=== PATIENT | male | born 1955 | race American Indian/Alaskan Native ===

== ENCOUNTER 2020-11-25 22:58 | Inpatient (IN) | payer MEDICARE ==
[2020-11-25] MEDS ORDERED: SODIUM CHLORIDE 0.9% 1000 ML 1,000 ML IV ONE (23:04)
[2020-11-25] MEDS ORDERED: CEFEPIME/NS 2 GM/100 ML 2 GM/100 ML BAG IV ONE ×2 (23:05→23:54)
[2020-11-25] MEDS ORDERED: SODIUM CHLORIDE 0.9% 1000 ML IV SOLN IV ONE (23:08)
--- NOTE | 2020-11-25 23:10 | Emergency Department Report ---
ED General Adult HPI - General Chief complaint: Fever Stated complaint: FEVER PUI?: Yes Time Seen by Provider: 11/25/20 23:03 Source: patient, EMS Mode of arrival: Stretcher Limitations: No Limitations - History of Present Illness Initial comments: Patient is a 65-year-old male who presents emergency room with complaints of fever, chills, diarrhea. Patient brought in by EMS. EMS states that the patient was found to be hypoxic 92% on room air placed on 3 L is 97% on 3 L. Patient found to have a heart rate of 140 and hypotension. Patient states his fever started yesterday. Patient states he has had diarrhea for a few days. Patient recently diagnosed with C. difficile and has not been given any treatment for it. Patient was diagnosed by his home health nurse.. Patient states he had his COVID-19 vaccine 4 weeks ago. Patient states he had both doses. Patient denies cough. Patient is currently on TPN secondary to stomach cancer. Patient denies recent travel. Patient denies recent international travel. Mary ent denies exposure to the novel coronavirus. Patient denies sick contacts. Patient denies loss of smell. Patient denies cough. Patient denies runny nose. Patient denies coming in contact with anybody with symptoms of the novel coronavirus. -: Sudden - Related Data Allergies Allergy/AdvReac Type Severity Reaction Status Date / Time aspirin AdvReac Nausea Verified 11/26/20 04:34 povidone-iodine AdvReac Nausea Verified 11/26/20 04:36 [From Betadine] soap [From Betadine] AdvReac Nausea Verified 11/26/20 04:36 ED Review of Systems ROS: Stated complaint: FEVER Other details as noted in HPI Constitutional: chills, fever Eyes: denies: eye pain, eye discharge, vision change ENT: denies: ear pain, throat pain Respiratory: denies: cough, shortness of breath, wheezing Cardiovascular: denies: chest pain, palpitations Endocrine: no symptoms reported Gastrointestinal: diarrhea. denies: abdominal pain, nausea Genitourinary: denies: urgency, dysuria Musculoskeletal: denies: back pain, joint swelling, arthralgia Skin: denies: rash, lesions Neurological: denies: headache, weakness, paresthesias Psychiatric: denies: anxiety, depression Hematological/Lymphatic: denies: easy bleeding, easy bruising ED Past Medical Hx - Past Medical History Previous Medical History?: Yes Additional medical history: History of C. difficile, stomach cancer - Surgical History Past Surgical History?: No - Family History Family history: no significant - Social History Smoking Status: Never Smoker Substance Use Type: None ED Physical Exam - General General appearance: alert, in no apparent distress - Head Head exam: Present: atraumatic, normocephalic - Eye Eye exam: Present: normal appearance - ENT ENT exam: Present: mucous membranes moist - Neck Neck exam: Present: normal inspection - Respiratory Respiratory exam: Present: normal lung sounds bilaterally. Absent: respiratory distress - Cardiovascular Cardiovascular Exam: Present: regular rate, normal rhythm. Absent: systolic murmur, diastolic murmur, rubs, gallop - GI/Abdominal GI/Abdominal exam: Present: soft, normal bowel sounds - Rectal Rectal exam: Present: deferred - Extremities Exam Extremities exam: Present: normal inspection - Back Exam Back exam: Present: normal inspection - Neurological Exam Neurological exam: Present: alert, oriented X3 - Psychiatric Psychiatric exam: Present: normal affect, normal mood - Skin Skin exam: Present: warm, dry, intact, normal color. Absent: rash ED Course Vital Signs 11/25/20 11/25/20 11/25/20 23:38 23:39 23:46 Temperature 101 F H Pulse Rate 136 H 136 H 136 H Respiratory 16 19 Rate Blood Pressure 89/57 89/57 Blood Pressure [Right] O2 Sat by Pulse 96 96 Oximetry 11/26/20 11/26/20 11/26/20 00:00 00:16 00:17 Temperature Pulse Rate 131 H 132 H 127 H Respiratory 22 30 H Rate Blood Pressure 96/61 95/71 Blood Pressure [Right] O2 Sat by Pulse 98 Oximetry 11/26/20 11/26/20 11/26/20 00:20 00:30 00:40 Temperature Pulse Rate 131 H 133 H 123 H Respiratory 21 28 H 19 Rate Blood Pressure 95/71 111/78 105/68 Blood Pressure [Right] O2 Sat by Pulse 77 L 99 Oximetry 11/26/20 11/26/20 11/26/20 00:50 01:00 01:10 Temperature Pulse Rate 119 H 103 H 118 H Respiratory 18 24 18 Rate Blood Pressure 105/68 108/71 107/73 Blood Pressure [Right] O2 Sat by Pulse 51 L 91 97 Oximetry 11/26/20 11/26/20 11/26/20 01:20 01:30 01:40 Temperature Pulse Rate 118 H 119 H 133 H Respiratory 19 19 33 H Rate Blood Pressure 107/73 104/69 104/69 Blood Pressure [Right] O2 Sat by Pulse 96 58 L Oximetry 11/26/20 11/26/20 11/26/20 01:50 01:55 02:00 Temperature 100.1 F H Pulse Rate 126 H 121 H 103 H Respiratory 22 16 21 Rate Blood Pressure 104/69 140/85 Blood Pressure 140/85 [Right] O2 Sat by Pulse 100 96 Oximetry 11/26/20 11/26/20 11/26/20 02:10 02:20 02:30 Temperature Pulse Rate 88 119 H 119 H Respiratory 21 27 H 30 H Rate Blood Pressure 140/85 140/85 140/85 Blood Pressure [Right] O2 Sat by Pulse 97 95 96 Oximetry 11/26/20 11/26/20 11/26/20 02:40 02:50 03:00 Temperature Pulse Rate 123 H 116 H 121 H Respiratory 27 H 22 27 H Rate Blood Pressure 140/85 140/85 132/73 Blood Pressure [Right] O2 Sat by Pulse 97 94 96 Oximetry 11/26/20 11/26/20 11/26/20 03:10 03:14 04:09 Temperature 100.1 F H Pulse Rate 117 H 119 H Respiratory 23 16 18 Rate Blood Pressure 132/73 113/75 Blood Pressure [Right] O2 Sat by Pulse 96 100 Oximetry - Reevaluation(s) Reevaluation #1: Patient's blood pressure is much better. Patient still receiving fluids. Patient complained of nausea. Patient was given Zofran. 11/25/20 23:31 Reevaluation #2: Patient oxygenation is much better. Patient is on room air. Patient vital signs are improving. Patient's heart rate is down to 120. 11/26/20 00:10 Reevaluation #3: Patient's blood pressure continues to be stable. Patient's heart rate is im proving. Patient is already receiving fluids and antibiotics. 11/26/20 01:20 Reevaluation #4: I discussed all results with patient. I discussed plan of care with patient. Patient agrees with plan of care and admission. Patient to be admitted to the hospitalist service. 11/26/20 02:21 - Consultations Consultation #1: Hospitalist consulted for admission. Hospitalist to admit patient. 11/26/20 02:21 ED Medical Decision Making - Lab Data Result diagrams: 11/25/20 23:44 11/25/20 23:44 - Radiology Data Radiology results: report reviewed, image reviewed interpreted by me: Chest x-ray: No pneumonia, no pneumothorax, no foreign body, no osseous findings, no acute findings CHEST 1 VIEW 11/25/2020 10:33 PM INDICATION / CLINICAL INFORMATION: fever. COMPARISON: CTA chest performed on 08/11/2019 FINDINGS: SUPPORT DEVICES: None. HEART / MEDIASTINUM: No significant abnormality. LUNGS / PLEURA: Lung volumes are mildly reduced with nonspecific mild bilateral interstitial opacities. No significant pleural effusion. No pneumothorax. ADDITIONAL FINDINGS: No significant additional findings. IMPRESSION: Reduced lung volumes with questionable mild interstitial edema. - Medical Decision Making Patient is a 65-year-old male who presents emergency room with complaints of diarrhea and fever. Patient had a recent diagnosis of C. difficile but has not received treatment. Patient brought in by EMS. Report received from EMS. Patient found to be hypoxic, hypotensive and tachycardic. Patient given minimal fluids and his blood pressure and heart rate improved. Patient oxygen stabilized and he was normal saturation on room air. Patient had a code sepsis protocol written. Patient given fluids and early antibiotics. Patient vital signs improved with treatment. Patient had labs done which showed an elevated WBC and hyperkalemia and renal insufficiency.. Patient had a chest x-ray done which was essentially unremarkable. I personally reviewed the chest x-ray. Patient admitted to the hospital service for further evaluation treatment. Critical care time documented due to the multiple reassessments, prolonged time at the bedside, interpretation of diagnostics and labs. - Differential Diagnosis Sepsis, fever, C. difficile, diarrhea, Critical Care Time: Yes Critical care time in (mins) excluding proc time.: 35 Critical care attestation.: If time is entered above; I have spent that time in minutes in the direct care of this critically ill patient, excluding procedure time. Critical Care Time: 35 minutes ED Disposition Clinical Impression: C. difficile colitis, Tachycardia, Hyperkalemia, Renal insufficiency, Dehydration, Lactic acidosis Fever Qualifiers: Fever type: unspecified Qualified Code(s): R50.9 - Fever, unspecified Diarrhea Qualifiers: Diarrhea type: infectious Qualified Code(s): A09 - Infectious gastroenteritis and colitis, unspecified Sepsis Qualifiers: Sepsis type: sepsis due to unspecified organism Sepsis acute organ dysfunction status: with acute organ dysfunction Severe sepsis acute organ dysfunction type: unspecified Severe sepsis shock status: without septic shock Qualified Code(s): A41.9 - Sepsis, unspecified organism Hypotension Qualifiers: Hypotension type: unspecified hypotension type Qualified Code(s): I95.9 - Hypotension, unspecified Disposition: DC-09 OP ADMIT IP TO THIS HOSP Is pt being admited?: Yes Does the pt Need Aspirin: No Condition: Critical Time of Disposition: 02:20
--- NOTE | 2020-11-25 23:44 | XRay Report ---
CHEST 1 VIEW 11/25/2020 10:33 PM INDICATION / CLINICAL INFORMATION: fever. COMPARISON: CTA chest performed on 08/11/2019 FINDINGS: SUPPORT DEVICES: None. HEART / MEDIASTINUM: No significant abnormality. LUNGS / PLEURA: Lung volumes are mildly reduced with nonspecific mild bilateral interstitial opacitie s. No significant pleural effusion. No pneumothorax. ADDITIONAL FINDINGS: No significant additional findings. IMPRESSION: Reduced lung volumes with questionable mild interstitial edema. Signer Name: Brian Mckinley MD Signed: 11/25/2020 11:40 PM Workstation Name: [id number]
[2020-11-25] MEDS ORDERED: metroNIDAZOLE/NS 500 MG/100 ML 500 MG/100 ML BAG IV ONE (23:54)
[2020-11-25] MEDS ORDERED: ONDANSETRON 4 MG/2 ML INJ IV ONE (23:55)
[2020-11-26 00:39] LABS: Basophils # (Auto) 0.1 K/mm3 (0.0-0.1); Basophils % (Auto) 0.5 % (0.0-1.8); Eosinophils # (Auto) 0.9 K/mm3 (0.0-0.4); Eosinophils % (Auto) 7.9 % (0.0-4.3); Hematocrit 31.9 % (35.5-45.6); Hemoglobin 10.5 gm/dl (11.8-15.2); Lymphocytes # (Auto) 0.2 K/mm3 (1.2-5.4); Lymphocytes % (Auto) 1.7 % (13.4-35.0); Mean Corpuscular HGB Conc 33 % (32-34); Mean Corpuscular Volume 82 fl (84-94); Monocytes # (Auto) 0.2 K/mm3 (0.0-0.8); Monocytes % (Auto) 1.8 % (0.0-7.3); Platelet Count 285 K/mm3 (140-440); Red Blood Count 3.88 M/mm3 (3.65-5.03); Red Cell Distribution Width 17.7 % (13.2-15.2)
[2020-11-26 01:01] LABS: Alanine Aminotransferase 20 units/L (7-56); Albumin 2.8 g/dL (3.9-5); BUN/Creatinine Ratio 43; Blood Urea Nitrogen 60 mg/dL (9-20); Calcium 8.7 mg/dL (8.4-10.2); Hemolysis Index 7
[2020-11-26] MEDS ORDERED: ACETAMINOPHEN 650 MG RECT SUPP PR ONE (02:21)
--- NOTE | 2020-11-26 02:30 | History and Physical Report ---
History of Present Illness Date of examination: 11/26/20 Date of admission: 11/26/20 Chief complaint: diarrhea History of present illness: Patient is a 65-year-old male who presents emergency room with complaints of fever, chills, diarrhea. Patient brought in by EMS. EMS states that the patient was found to be hypoxic 92% on room air placed on 3 L is 97% on 3 L. Patient found to have a heart rate of 140 and hypotension. Patient states his fever started yesterday. Patient states he has had diarrhea for a few days. Patient recently diagnosed with C. difficile and has not been given any treatment for it. Patient was diagnosed by his home health nurse.. Patient states he had his COVID-19 vaccine 4 weeks ago. Patient states he had both doses. Patient denies cough. ED work-up showed WBC 11.2, hemoglobin 10.5, platelets 285, sodium 141, potassium 5.5, creatinine 1.4, lactic acidosis 2.4, calcium 8.7 and a protein 7.2. Patient seen in ED antibiotics at bedside patient reported diarrhea and nausea with vomiting. This chest x-ray done shows reduced lung volume with questionable mild interstitial edema patient denies tobacco, alcohol, and illicit drug use. Past History Past Medical History: hypertension Past Surgical History: No surgical history Social history: lives with family Family history: hypertension Medications and Allergies Allergies Allergy/AdvReac Type Severity Reaction Status Date / Time aspirin AdvReac Nausea Verified 11/26/20 04:34 povidone-iodine AdvReac Nausea Verified 11/26/20 04:36 [From Betadine] soap [From Betadine] AdvReac Nausea Verified 11/26/20 04:36 Review of Systems Constitutional: weakness, malaise Ears, nose, mouth and throat: no epistaxis, no bleeding gums Respiratory: no congestion, no wheezing Gastrointestinal: no nausea, no diarrhea, no BRBPR, no melena Rectal: no itching, no hemorrhoids Musculoskeletal: no leg numbness/tingling, no muscle weakness, no gait d ysfunction Integumentary: no rash Psychiatric: no suicidal ideation, no disorientation, no hallucinations Hematologic/Lymphatic: no easy bruising, no easy bleeding Allergic/Immunologic: no urticaria Exam - Constitutional Vitals: Temp Pulse Resp BP Pulse Ox 100.1 F H 121 H 16 140/85 100 11/26/20 01:55 11/26/20 01:55 11/26/20 01:55 11/26/20 01:55 11/26/20 01:55 General appearance: Present: no acute distress, well-nourished - EENT Eyes: Present: PERRL ENT: hearing intact, clear oral mucosa - Neck Neck: Present: supple, normal ROM - Respiratory Respiratory effort: normal Respiratory: bilateral: CTA - Cardiovascular Heart Sounds: Present: S1 & S2. Absent: rub, click - Extremities Extremities: pulses symmetrical, No edema Peripheral Pulses: within normal limits - Abdominal General gastrointestinal: Present: soft, non-tender, non-distended, normal bowel sounds Male genitourinary: Present: normal - Integumentary Integumentary: Present: clear, warm, dry - Musculoskeletal Musculoskeletal: gait normal, strength equal bilaterally - Psychiatric Psychiatric: appropriate mood/affect, intact judgment & insight - Neurologic Neurologic: CNII-XII intact, moves all extremities - Allied Health Allied health notes reviewed: nursing Results - Labs CBC & Chem 7: 11/25/20 23:44 11/25/20 23:44 Labs: Abnormal lab results 11/25/20 11/25/20 11/25/20 Range/Units 23:44 23:44 23:44 WBC 11.2 H (4.5-11.0) K/mm3 Hgb 10.5 L (11.8-15.2) gm/dl Hct 31.9 L (35.5-45.6) % MCV 82 L (84-94) fl MCH 27 L (28-32) pg RDW 17.7 H (13.2-15.2) % Lymph % (Auto) 1.7 L (13.4-35.0) % Eos % (Auto) 7.9 H (0.0-4.3) % Lymph # (Auto) 0.2 L (1.2-5.4) K/mm3 Eos # (Auto) 0.9 H (0.0-0.4) K/mm3 Seg Neutrophils % 88.1 H (40.0-70.0) % Seg Neutrophils # 9.9 H (1.8-7.7) K/mm3 Potassium 5.5 H (3.6-5.0) mmol/L Chloride 108.2 H (98-107) mmol/L Carbon Dioxide 18 L (22-30) mmol/L BUN 60 H (9-20) mg/dL Creatinine 1.4 H (0.8-1.3) mg/dL Glucose 147 H (75-100) mg/dL Lactic Acid 2.40 H* (0.7-2.0) mmol/L Alkaline Phosphatase 272 H (35-129) units/L Albumin 2.8 L (3.9-5) g/dL Assessment and Plan - Patient Problems (1) C. difficile colitis Current Visit: Yes Status: Acute Plan to address problem: Oral vancomycin and flagyl IV hydration. (2) Diarrhea Current Visit: Yes Status: Acute Qualifiers: Diarrhea type: infectious Qualified Code(s): A09 - Infectious gastroenteritis and colitis, unspecified Plan to address problem: 2/2 to c-diff infection IV hydration antibiotic (3) Sepsis Current Visit: Yes Status: Acute Qualifiers: Sepsis type: sepsis due to unspecified organism Sepsis acute organ dysfunction status: with acute organ dysfunction Severe sepsis acute organ dysfunction type: unspecified Severe sepsis shock status: without septic shock Qualified Code(s): A41.9 - Sepsis, unspecified organism; R65.20 - Severe sepsis without septic shock Plan to address problem: Continue current medical care IV hydration and abx therapy Blood culture ID consult (4) Renal insufficiency Current Visit: Yes Status: Acute Plan to address problem: likely 2/2 to dehydration monitor kidney function Aviod nephrotoxic drugs (5) Hyperkalemia Current Visit: Yes Status: Acute Plan to address problem: Likely to dehydration Dextrose and insulin given x1 Monitor potassium level. (6) DVT prophylaxis Current Visit: Yes Status: Acute Plan to address problem: Subcutaneous heparin
[2020-11-26] MEDS ORDERED: ONDANSETRON 4 MG/2 ML INJ IV PRN ×3 (02:31→02:51)
[2020-11-26] MEDS ORDERED: MORPHINE 2 MG/1 ML INJ IV PRN (02:31)
[2020-11-26] MEDS ORDERED: NALOXONE 0.4 MG/1 ML INJ IV PRN (02:31)
[2020-11-26] MEDS ORDERED: ALUM-MAG HYDROXIDE-SIMETHICONE 200-200-20MG/5ML ORAL LIQD 30 ML PO PRN (02:31)
[2020-11-26] MEDS ORDERED: HYDROcodone/ACETAMINOPHEN 5-325 MG TAB PO PRN (02:31)
[2020-11-26] MEDS ORDERED: ACETAMINOPHEN 325 MG TAB PO PRN ×4 (02:31→02:51)
[2020-11-26] MEDS ORDERED: MORPHINE 4 MG/1 ML INJ IV PRN (02:44)
[2020-11-26] MEDS ORDERED: METOCLOPRAMIDE 10 MG/2 ML INJ IV PRN (02:51)
[2020-11-26] MEDS ORDERED: MAGNESIUM HYDROXIDE (MOM) ORAL LIQD UDC PO PRN (02:51)
[2020-11-26] MEDS ORDERED: HYDROmorphone 1 MG/1 ML INJ IV PRN ×2 (02:51)
[2020-11-26] MEDS: metroNIDAZOLE/NS 500 MG/100 ML 500 MG/100 ML BAG IV SCH ×3 (03:48→22:27)
[2020-11-26] MEDS: D5W/0.9% NACL 1,000 ML IV SCH ×2 (04:55→18:53)
[2020-11-26] MEDS ORDERED: DEXTROSE 50% IN WATER (25GM) 50 ML SYRINGE IV ONE (05:47)
[2020-11-26] MEDS ORDERED: INSULIN REGULAR, HUMAN 100 UNITS/1 ML IV ONE (05:47)
[2020-11-26] MEDS ORDERED: metroNIDAZOLE 500 MG TAB PO SCH (06:00)
[2020-11-26] MEDS ORDERED: VANCOMYCIN 250 MG/10 ML ORAL LIQD PO SCH ×2 (06:00→12:00)
[2020-11-26] MEDS ORDERED: FUROSEMIDE 40 MG/4 ML INJ IV NR (07:01)
[2020-11-26] MEDS ORDERED: SODIUM CHLORIDE 0.9% 1000 ML 1,000 ML IV ONE (07:50)
--- NOTE | 2020-11-26 08:55 | Consultation ---
History of Present Illness - Reason for Consult Consult date: 11/26/20 fever Requesting physician: VIVIAN JONES - History of Present Illness 59-year-old male with history of stomach cancer, on TPN, port in place, recent C. difficile colitis admitted on 11/25/2020 secondary to few days history of fever, chills, diarrhea. Patient was found hypoxic and tachycardic by EMS with an O2 sat of 92% and a heart rate of 140 also noted hypotension. Patient was diagnosed with C. difficile colitis and has not been given any treatment for it. Patient received COVID-19 vaccine x2 doses 4 weeks ago. In the ED, temperature 101, HR 136, RR 16, O2 sat 96%, BP 89/57. Initial WBC 11.2. Hemoglobin 10.5. Platelets 25. Creatinine 1.4. Lactate 2.4. Blood culture 11/25/2020 pending. Chest x-ray mild interstitial edema. Review of Systems: positive in bold print General: fever, chills, malaise Cutaneous: rash, pruritus Head: headaches or injury Eyes: changes in vision, eye pain, double vision Ears: ear pain, ear discharge, ringing or hearing loss Nose: nose bleeding, stuffiness Mouth & throat: bleeding gums, horseness, no dental problems, or swollen glands Neck: no pain, node enlargement/lumps, tyroid enlargement or tenderness Respiratory: SOB, cough, IRWIN, wheezing, sputum, hemoptysis, pleuritic chest pain Cardiovascular: chest pain, leg edema, cyanosis, IRWIN, orthopnea Musculoskeletal: edema, deformities, pain Gastrointestinal: nausea, vomiting, diarrhea, constipation, melena, bright red blood in stools, fecal incontinence, jaundice Genitourinary/Reproductive: frequent urination, dysuria, hematuria, incontinence Neurogical: seizures, headaches, weakness, paresthesias, loss of speech or vision; memory loss, vertigo, tremors, numbness Psychiatric: stable mood; excessive anxiety, sadness or moodiness Past History Past Medical History: hypertension Past Surgical History: No surgical history Social history: lives with family Family history: hypertension Medications and Allergies Allergies Allergy/AdvReac Type Severity Reaction Status Date / Time aspirin AdvReac Nausea Verified 11/26/20 04:34 povidone-iodine AdvReac Nausea Verified 11/26/20 04:36 [From Betadine] soap [From Betadine] AdvReac Nausea Verified 11/26/20 04:36 Home Medications Medication Instructions Recorded Confirmed Last Taken Type Lovenox 0.7 mg SQ BID 11/26/20 11/26/20 11/25/20 08:00 History Active Meds: Active Medications Acetaminophen (Acetaminophen 325 Mg Tab) 650 mg PO Q4H PRN PRN Reason: Pain MILD(1-3)/Fever >100.5/BAY Acetaminophen (Acetaminophen 650 Mg Rect Supp) 650 mg [place] Q4H PRN PRN Reason: Pain, Mild (1-3) Hydrocodone Bitart/Acetaminophen (Hydrocodone/Acetaminophen 5-325 Mg Tab) 2 each PO Q6H PRN PRN Reason: Pain, Moderate (4-6) Al Hydrox/Mg Hydrox/Simethicone (Alum-Mag Hydroxide-Simethicone [phone]/[phone] Oral Liqd 30 Ml) 30 ml PO Q4H PRN PRN Reason: Indigestion Famotidine (Famotidine 20 Mg/2 Ml Inj) 20 mg IV BID KATHRINE Furosemide (Furosemide 40 Mg/4 Ml Inj) 40 mg IV ONCE NR Stop: 11/26/20 12:00 Last Admin: 11/26/20 07:40 Dose: 40 mg Documented by: Heparin Sodium (Porcine) (Heparin 5,000 Unit/1 Ml Vial) 5,000 unit SUB-Q Q12HR [facility] Dextrose/Sodium Chloride (D5ns) 1,000 mls @ 75 mls/hr IV DIRECT KATHRINE Last Admin: 11/26/20 04:55 Dose: 75 mls/hr Documented by: Metronidazole (Flagyl 500 Mg/100 Ml) 500 mg in 100 mls @ 100 mls/hr IV Q8HR KATHRINE; Protocol Last Admin: 11/26/20 03:48 Dose: 100 mls/hr Documented by: Magnesium Hydroxide (Magnesium Hydroxide (Mom) Oral Liqd Udc) 30 ml PO Q4H PRN PRN Reason: Constipation Metoclopramide HCl (Metoclopramide 10 Mg/2 Ml Inj) 10 mg IV Q6H PRN PRN Reason: Nausea And Vomiting Last Admin: 11/26/20 04:23 Dose: 10 mg Documented by: Naloxone HCl (Naloxone 0.4 Mg/1 Ml Inj) 0.1 mg IV Q2MIN PRN PRN Reason: Res Rate </= 8 or 02 SAT < 92% Sodium Chloride (Sodium Chloride 0.9% 10 Ml Flush Syringe) 10 ml IV BID KATHRINE Vancomycin HCl (Vancomycin 250 Mg/10 Ml Oral Liqd) 125 mg PO Q6HR KATHRINE; Protocol Last Admin: 11/26/20 07:47 Dose: Not Given Documented by: Physical Examination - Physical Exam Narrative exam: General appearance: Alert, confused, anxious Eyes: anicteric sclerae, moist conjunctivae; no lid-lag; PERRLA HENT: Normocephalic, Atraumatic; normal external ears, nares open, oropharynx clear Neck: supple, tracheal midline, no JVD Lungs: CTA, with normal respiratory effort and no intercostal retractions CV: Tachycardic Abdomen: Soft, mild tenderness nondistended Extremities: no edema, no cyanosis Skin: Sacral decubitus Psych: Confused anxious Neuro: alert and oriented x 3. Moving all extermities - Constitutional Vitals: Vital Signs Temp Pulse Resp BP Pulse Ox 100.1 F H 119 H 18 113/75 94 11/26/20 04:09 11/26/20 04:09 11/26/20 04:09 11/26/20 04:09 11/26/20 07:31 Temperature -Last 24 Hours Temperature 100.1 F Temperature 100.1 F Temperature 101 F Results - Labs CBC & Chem 7: 11/25/20 23:44 11/25/20 23:44 Labs: Abnormal lab results 11/25/20 11/25/20 11/25/20 Range/Units 23:44 23:44 23:44 WBC 11.2 H (4.5-11.0) K/mm3 Hgb 10.5 L (11.8-15.2) gm/dl Hct 31.9 L (35.5-45.6) % MCV 82 L (84-94) fl MCH 27 L (28-32) pg RDW 17.7 H (13.2-15.2) % Lymph % (Auto) 1.7 L (13.4-35.0) % Eos % (Auto) 7.9 H (0.0-4.3) % Lymph # (Auto) 0.2 L (1.2-5.4) K/mm3 Eos # (Auto) 0.9 H (0.0-0.4) K/mm3 Seg Neutrophils % 88.1 H (40.0-70.0) % Seg Neutrophils # 9.9 H (1.8-7.7) K/mm3 Potassium 5.5 H (3.6-5.0) mmol/L Chloride 108.2 H (98-107) mmol/L Carbon Dioxide 18 L (22-30) mmol/L BUN 60 H (9-20) mg/dL Creatinine 1.4 H (0.8-1.3) mg/dL Glucose 147 H (75-100) mg/dL Lactic Acid 2.40 H* (0.7-2.0) mmol/L Alkaline Phosphatase 272 H (35-129) units/L Albumin 2.8 L (3.9-5) g/dL Assessment and Plan Cultures: Blood culture 11/26/2020 pending Assessment: 59-year-old male with history of stomach cancer, on TPN, port in place, recent C. difficile colitis admitted on 11/25/2020 secondary to few days history of fever, chills, diarrhea: #Severe sepsis: Present on admission with tachycardia, leukocytosis, hypotension, hypoxia, elevated lactate; likely due to Cdiff colitis. #Suspect secondary C. difficile colitis #Pulmonary edema: ? #Acute hypoxemic respiratory failure: On nasal cannula O2. ? Volume overload. #Sacral decubitus: Stage II-III not infected Recommendations: -Increase vancomycin p.o.to 250 mg 4 times daily -Continue metronidazole 500 mg IV every 8 hours -Obtain stool for C. difficile stat, discussed with nursing staff -Follow-up blood cultures -Obtain urinalysis -Obtain echocardiogram -Close monitoring -Wound care consultation/offloading sacral area Will follow. Laina Agrawal MD Infectious Diseases Dispensary Clerk [facility] M [phone] O [phone]
[2020-11-26] MEDS: FAMOTIDINE 20 MG/2 ML INJ IV SCH ×2 (09:07→22:27)
[2020-11-26] MEDS: HEPARIN 5,000 UNIT/1 ML VIAL SUB-Q SCH ×2 (09:09→22:27)
[2020-11-26] MEDS: ACETAMINOPHEN 650 MG RECT SUPP PR PRN ×3 (09:12→22:33)
[2020-11-26 13:00] LABS: Bilirubin,Urine NEG (Negative); Blood,Urine MOD (Negative); Color,Urine Straw (Yellow); Mucus,Urine FEW /HPF; Protein,Urine <15 mg/dL mg/dL (Negative); Urobilinogen,Urine < 2.0 mg/dL (<2.0)
[2020-11-26 15:55] LABS: BUN/Creatinine Ratio 43; Blood Urea Nitrogen 51 mg/dL (9-20); Calcium 7.8 mg/dL (8.4-10.2); Hemolysis Index 1
[2020-11-26] MEDS: CEFEPIME/NS 2 GM/100 ML 2 GM/100 ML BAG IV SCH (22:27)
[2020-11-27] MEDS: metroNIDAZOLE/NS 500 MG/100 ML 500 MG/100 ML BAG IV SCH ×3 (05:03→21:01)
[2020-11-27] MEDS: HEPARIN 5,000 UNIT/1 ML VIAL SUB-Q SCH ×2 (09:28→21:00)
[2020-11-27] MEDS: CEFEPIME/NS 2 GM/100 ML 2 GM/100 ML BAG IV SCH ×2 (09:28→21:01)
[2020-11-27] MEDS: FAMOTIDINE 20 MG/2 ML INJ IV SCH ×2 (09:29→21:00)
--- NOTE | 2020-11-27 09:38 | Event Note ---
Date: 11/26/20
[2020-11-27 09:41] LABS: Basophils # (Auto) 0.1 K/mm3 (0.0-0.1); Basophils % (Auto) 0.6 % (0.0-1.8); Eosinophils # (Auto) 0.7 K/mm3 (0.0-0.4); Eosinophils % (Auto) 7.1 % (0.0-4.3); Hematocrit 25.4 % (35.5-45.6); Hemoglobin 8.2 gm/dl (11.8-15.2); Lymphocytes # (Auto) 0.2 K/mm3 (1.2-5.4); Lymphocytes % (Auto) 2.3 % (13.4-35.0); Mean Corpuscular HGB Conc 32 % (32-34); Mean Corpuscular Volume 85 fl (84-94); Monocytes # (Auto) 0.6 K/mm3 (0.0-0.8); Monocytes % (Auto) 5.9 % (0.0-7.3); Platelet Count 151 K/mm3 (140-440); Red Blood Count 3.01 M/mm3 (3.65-5.03); Red Cell Distribution Width 17.1 % (13.2-15.2)
[2020-11-27 09:45] LABS: BUN/Creatinine Ratio 38; Blood Urea Nitrogen 49 mg/dL (9-20); Calcium 7.9 mg/dL (8.4-10.2); Hemolysis Index 0
[2020-11-27] MEDS: D5W/0.9% NACL 1,000 ML IV SCH (14:09)
--- NOTE | 2020-11-27 15:09 | Progress Note ---
Assessment and Plan Assessment and Plan - Patient Problems (1) C. difficile colitis Current Visit: Yes Status: Acute Plan to address problem: Oral vancomycin and flagyl IV hydration. (2) Diarrhea Current Visit: Yes Status: Acute Qualifiers: Diarrhea type: infectious Qualified Code(s): A09 - Infectious gastroenteritis and colitis, unspecified Plan to address problem: 2/2 to c-diff infection IV hydration antibiotic (3) Sepsis Current Visit: Yes Status: Acute Qualifiers: Sepsis type: sepsis due to unspecified organism Sepsis acute organ dysfunction status: with acute organ dysfunction Severe sepsis acute organ dysfunction type: unspecified Severe sepsis shock status: without septic shock Qualified Code(s): A41.9 - Sepsis, unspecified organism; R65.20 - Severe sepsis without septic shock Plan to address problem: Continue current medical care IV hydration and abx therapy Blood culture ID consult (4) Acute kidney injury Current Visit: Yes Status: Acute Plan to address problem: Vasomotor nephropathy IV fluids (5) Hyperkalemia Current Visit: Yes Status: Acute Plan to address problem: Likely to dehydration Dextrose and insulin given x1 Monitor potassium level. (6) DVT prophylaxis Current Visit: Yes Status: Acute Plan to address problem: Subcutaneous heparin Subjective Date of service: 11/27/20 Principal diagnosis: Colitis Interval history: Patient is a 65-year-old male who presents emergency room with complaints of fever, chills, diarrhea. Patient brought in by EMS. EMS states that the patient was found to be hypoxic 92% on room air placed on 3 L is 97% on 3 L. Patient found to have a heart rate of 140 and hypotension. Patient states his fever started yesterday. Patient states he has had diarrhea for a few days. Patient recently diagnosed with C. difficile and has not been given any treatment for it. Patient was diagnosed by his home health nurse.. Patient states he had his COVID-19 vaccine 4 weeks ago. Patient states he had both doses. Patient denies cough. ED work-up showed WBC 11.2, hemoglobin 10.5, platelets 285, sodium 141, potassium 5.5, creatinine 1.4, lactic acidosis 2.4, calcium 8.7 and a protein 7.2. Patient seen in ED antibiotics at bedside patient reported diarrhea and nausea with vomiting. This chest x-ray done shows reduced lung volume with questionable mild interstitial edema patient denies tobacco, alcohol, and illicit drug use. 11/27/2020 Patient continues to have diarrhea Objective - Constitutional Vitals: Vital Signs - 12hr 11/27/20 06:59 Temperature 97.6 F Pulse Rate 53 L Respiratory 18 Rate Blood Pressure 91/66 O2 Sat by Pulse 84 Oximetry General appearance: Present: no acute distress, well-nourished - EENT Eyes: PERRL, EOM intact ENT: hearing intact, clear oral mucosa Ears: bilateral: normal - Neck Neck: supple, normal ROM - Respiratory Respiratory effort: normal Respiratory: bilateral: CTA - Breasts Breasts: normal - Cardiovascular Heart rate: 78 Rhythm: regular Heart Sounds: Present: S1 & S2. Absent: gallop, rub Extremities: pulses intact, No edema, normal color, Full ROM - Gastrointestinal General gastrointestinal: Present: soft, non-tender, non-distended, normal bowel sounds - Genitourinary Male genitourinary: normal - Integumentary Integumentary: clear, warm, dry - Musculoskeletal Musculoskeletal: 1, strength equal bilaterally - Neurologic Neurologic: moves all extremities - Psychiatric Psychiatric: memory intact, appropriate mood/affect, intact judgment & insight - Labs CBC & Chem 7: 11/27/20 08:41 11/28/20 07:11 Labs: Abnormal lab results 11/26/20 11/26/20 11/27/20 Range/Units 15:02 15:02 08:41 RBC 3.01 L (3.65-5.03) M/mm3 Hgb 8.2 L (11.8-15.2) gm/dl Hct 25.4 L D (35.5-45.6) % MCH 27 L (28-32) pg RDW 17.1 H (13.2-15.2) % Lymph % (Auto) 2.3 L (13.4-35.0) % Eos % (Auto) 7.1 H (0.0-4.3) % Lymph # (Auto) 0.2 L (1.2-5.4) K/mm3 Eos # (Auto) 0.7 H (0.0-0.4) K/mm3 Seg Neutrophils % 84.1 H (40.0-70.0) % Seg Neutrophils # 8.7 H (1.8-7.7) K/mm3 Sodium (137-145) mmol/L Chloride (98-107) mmol/L Carbon Dioxide 17 L (22-30) mmol/L BUN 51 H (9-20) mg/dL Glucose 148 H (75-100) mg/dL Hemoglobin A1c (4-6) % Lactic Acid 2.40 H* (0.7-2.0) mmol/L Calcium 7.8 L (8.4-10.2) mg/dL 11/27/20 11/27/20 Range/Units 08:41 08:56 RBC (3.65-5.03) M/mm3 Hgb (11.8-15.2) gm/dl Hct (35.5-45.6) % MCH (28-32) pg RDW (13.2-15.2) % Lymph % (Auto) (13.4-35.0) % Eos % (Auto) (0.0-4.3) % Lymph # (Auto) (1.2-5.4) K/mm3 Eos # (Auto) (0.0-0.4) K/mm3 Seg Neutrophils % (40.0-70.0) % Seg Neutrophils # (1.8-7.7) K/mm3 Sodium 147 H D (137-145) mmol/L Chloride 116.1 H (98-107) mmol/L Carbon Dioxide 21 L (22-30) mmol/L BUN 49 H (9-20) mg/dL Glucose (75-100) mg/dL Hemoglobin A1c 6.8 H (4-6) % Lactic Acid (0.7-2.0) mmol/L Calcium 7.9 L (8.4-10.2) mg/dL
[2020-11-27] MEDS ORDERED: TOTAL PARENTERAL NUTRITION 2,016 ML IV SCH (20:00)
[2020-11-27] MEDS ORDERED: ALBUTEROL 2.5 MG/3 ML NEBU IH ONE (21:40)
[2020-11-27] MEDS ORDERED: ALBUTEROL 2.5 MG/3 ML NEBU IH PRN (21:55)
[2020-11-27] MEDS ORDERED: LORazepam 2 MG/ML VIAL IV ONE (22:54)
[2020-11-28] MEDS ORDERED: LORazepam 2 MG/ML VIAL IV ONE (01:13)
[2020-11-28] MEDS: metroNIDAZOLE/NS 500 MG/100 ML 500 MG/100 ML BAG IV SCH ×2 (06:06→14:00)
[2020-11-28 06:44] LABS: Bilirubin,Urine NEG (Negative); Blood,Urine SM (Negative); Color,Urine Straw (Yellow); Urobilinogen,Urine < 2.0 mg/dL (<2.0); WBC,Urine < 1.0 /HPF (0.0-6.0)
[2020-11-28] MEDS: CEFEPIME/NS 2 GM/100 ML 2 GM/100 ML BAG IV SCH (09:56)
[2020-11-28] MEDS: HEPARIN 5,000 UNIT/1 ML VIAL SUB-Q SCH ×2 (09:57→21:58)
[2020-11-28] MEDS: FAMOTIDINE 20 MG/2 ML INJ IV SCH ×3 (09:57→21:58)
--- NOTE | 2020-11-28 11:54 | Electrocardiograph Report ---
[facility] Test Date: 2020-11-27 Test Time: 23:55:18 Pat Name: Pedro NEWBY Department: Room: A391 1 Gender: M Event Promoter: KANWAL : 1955 Requested By: FAYE GONZALEZ Order Number: [id number] Reading MD: Timur Dahl Measurements Intervals [place] Rate: 151 P: 64 MA: 97 QRS: -6 QRSD: 70 T: 5 QT: 267 QTc: 422 Interpretive Statements Sinus tachycardia Nonspecific ST abnormality No previous ECG available for comparison Electronically Signed On 11-28-2020 11:54:22 EDT by Timur Dahl
--- NOTE | 2020-11-28 14:56 | Progress Note ---
Assessment and Plan Cultures: Blood culture 11/25/2020 GNR in 1 set 11/05/2020 urine culture: Usual skin ayla Assessment: 59-year-old male with history of stomach cancer, on TPN, PORT in place, recent C. difficile colitis admitted on 11/25/2020 secondary to few days history of fever, chills, diarrhea: #Severe sepsis: Present on admission with tachycardia, leukocytosis, hypotension, hypoxia, elevated lactate; likely due to Cdiff colitis and GNR bacteremia. #GNR bacteremia: Source could be intra-abdominal/gut translocation v/s PORT infection. UA not suggestive of infection. #Suspected secondary C. difficile colitis #Acute hypoxemic respiratory failure: On nasal cannula O2. ? Volume overload. No obvious pneumonia seen #Sacral decubitus: Stage II-III not infected #Encephalopathy: acute. #SERGIO: renally dose abx. Recommendations: -Cefepime switched to IV meropenem 1 g every 12 for GNR bacteremia, renally dosed -PO vancomycin 250 mg 4 times daily -Stool sample for C. difficile not sent yet -Follow-up blood cultures, repeats ordered due to indwelling PORT -may need abdominal imaging with CT to evaluate source -Wound care consultation/offloading sacral area Nilsa Marie MD, FACP [facility] ([facility] O: [phone] F: [phone] Subjective Date of service: 11/28/20 Interval history: Low-grade fevers. Drowsy. On Ventimask. TPN infusing through port. No stool sample sent yet Objective - Exam Narrative Exam: Physical Exam: Constitutional: Drowsy Head, Ears, Nose: Normocephalic, atraumatic. External ears, nose normal Eyes: Conjunctivae/corneas clear. No icterus. No ptosis. Neck: Supple, no meningeal signs Cardiovascular: S1, S2 + Respiratory: Few rhonchi bilaterally GI: Soft, non-tender; bowel sounds normal. No peritoneal signs Musculoskeletal: No pedal edema, no cyanosis. Skin: No rash or abscess Hem/Lymphatic: No palpable cervical or supraclavicular nodes. No lymphangitis Psych: No agitation Neurological: Drowsy - Constitutional Vitals: Vital Signs Temp Pulse Resp BP Pulse Ox 99.8 F H 156 H 22 100/61 100 11/27/20 22:22 11/27/20 22:22 11/27/20 22:22 11/27/20 22:22 11/28/20 10:00 Temperature -Last 24 Hours Temperature 99.8 F Temperature 100.4 F - Labs CBC & Chem 7: 11/27/20 08:41 11/28/20 07:11 Labs: Abnormal lab results 11/28/20 Range/Units 07:11 Sodium 149 H (137-145) mmol/L Chloride 119.6 H (98-107) mmol/L Carbon Dioxide 17 L (22-30) mmol/L BUN 50 H (9-20) mg/dL Creatinine 2.1 H D (0.8-1.3) mg/dL Calcium 8.0 L (8.4-10.2) mg/dL
[2020-11-28] MEDS: MEROPENEM/NS 1 GRAM/100 ML 1 GRAM/100 ML BAG IV SCH (19:23)
[2020-11-28] MEDS: VANCOMYCIN 250 MG/10 ML ORAL LIQD PO SCH ×2 (19:23→23:36)
[2020-11-28] MEDS ORDERED: TOTAL PARENTERAL NUTRITION 2,400 ML IV SCH (20:00)
[2020-11-28] MEDS ORDERED: FAT EMULSIONS 20% 250 ML IV SCH (20:00)
[2020-11-29] MEDS: MEROPENEM/NS 1 GRAM/100 ML 1 GRAM/100 ML BAG IV SCH (04:03)
[2020-11-29] MEDS: VANCOMYCIN 250 MG/10 ML ORAL LIQD PO SCH ×3 (06:14→18:16)
--- NOTE | 2020-11-29 07:01 | Progress Note ---
Assessment and Plan Assessment and Plan - Patient Problems (1) C. difficile colitis Current Visit: Yes Status: Acute Plan to address problem: Oral vancomycin and flagyl IV hydration. Improving (2) Diarrhea Current Visit: Yes Status: Acute Qualifiers: Diarrhea type: infectious Qualified Code(s): A09 - Infectious gastroenteritis and colitis, unspecified Plan to address problem: 2/2 to c-diff infection IV hydration antibiotic Improving (3) Sepsis Current Visit: Yes Status: Acute Qualifiers: Sepsis type: sepsis due to unspecified organism Sepsis acute organ dysfunction status: with acute organ dysfunction Severe sepsis acute organ dysfunction type: unspecified Severe sepsis shock status: without septic shock Qualified Code(s): A41.9 - Sepsis, unspecified organism; R65.20 - Severe sepsis without septic shock Plan to address problem: Continue current medical care IV hydration and abx therapy Blood culture ID consult appreciated (4) Acute kidney injury Current Visit: Yes Status: Acute Plan to address problem: Vasomotor nephropathy IV fluids (5) Hypernatremia Current Visit: Yes Status: Acute Plan to address problem: IV D5W for now (6) DVT prophylaxis Current Visit: Yes Status: Acute Plan to address problem: Subcutaneous heparin Subjective Date of service: 11/28/20 Principal diagnosis: Colitis Interval history: Patient is a 65-year-old male who presents emergency room with complaints of fever, chills, diarrhea. Patient brought in by EMS. EMS states that the patient was found to be hypoxic 92% on room air placed on 3 L is 97% on 3 L. Patient found to have a heart rate of 140 and hypotension. Patient states his fever started yesterday. Patient states he has had diarrhea for a few days. Patient recently diagnosed with C. difficile and has not been given any treatment for it. Patient was diagnosed by his home health nurse.. Patient states he had his COVID-19 vaccine 4 weeks ago. Patient states he had both doses. Patient denies cough. ED work-up showed WBC 11.2, hemoglobin 10.5, platelets 285, sodium 141, potassium 5.5, creatinine 1.4, lactic acidosis 2.4, calcium 8.7 and a protein 7.2. Patient seen in ED antibiotics at bedside patient reported diarrhea and nausea with vomiting. This chest x-ray done shows reduced lung volume with questionable mild interstitial edema patient denies tobacco, alcohol, and illicit drug use. 11/27/2020 Patient continues to have diarrhea 11/28/2020 1 episode of loose bowel movement Otherwise doing well Alert and oriented and talking normally States he is feeling better Objective - Constitutional Vitals: Vital Signs - 12hr 11/28/20 11/28/20 11/28/20 22:16 23:08 23:21 Temperature 97.9 F 98.4 F Pulse Rate 94 H 122 H Respiratory 18 26 H Rate Blood Pressure 99/58 207/113 O2 Sat by Pulse 100 100 94 Oximetry 11/29/20 11/29/20 04:00 05:17 Temperature 98.1 F Pulse Rate 103 H Respiratory 18 Rate Blood Pressure 112/71 O2 Sat by Pulse 100 100 Oximetry General appearance: Present: no acute distress, well-nourished - EENT Eyes: PERRL, EOM intact ENT: hearing intact, clear oral mucosa Ears: bilateral: normal - Neck Neck: supple, normal ROM - Respiratory Respiratory effort: normal Respiratory: bilateral: CTA - Breasts Breasts: normal - Cardiovascular Heart rate: 78 Rhythm: regular Heart Sounds: Present: S1 & S2. Absent: gallop, rub Extremities: pulses intact, No edema, normal color, Full ROM - Gastrointestinal General gastrointestinal: Present: soft, non-tender, non-distended, normal bowel sounds - Genitourinary Male genitourinary: normal - Integumentary Integumentary: clear, warm, dry - Musculoskeletal Musculoskeletal: 1, strength equal bilaterally - Neurologic Neurologic: moves all extremities - Psychiatric Psychiatric: memory intact, appropriate mood/affect, intact judgment & insight - Labs CBC & Chem 7: 11/27/20 08:41 11/28/20 07:11 Labs: Abnormal lab results 11/28/20 11/28/20 11/28/20 Range/Units 07:11 17:04 23:06 Sodium 149 H (137-145) mmol/L Chloride 119.6 H (98-107) mmol/L Carbon Dioxide 17 L (22-30) mmol/L BUN 50 H (9-20) mg/dL Creatinine 2.1 H D (0.8-1.3) mg/dL POC Glucose 111 H 122 H (70-105) mg/dL Calcium 8.0 L (8.4-10.2) mg/dL 11/29/20 Range/Units 05:14 Sodium (137-145) mmol/L Chloride (98-107) mmol/L Carbon Dioxide (22-30) mmol/L BUN (9-20) mg/dL Creatinine (0.8-1.3) mg/dL POC Glucose 136 H (70-105) mg/dL Calcium (8.4-10.2) mg/dL
[2020-11-29] MEDS ORDERED: DEXTROSE 5% IN WATER 1,000 ML IV SCH (08:00)
--- NOTE | 2020-11-29 08:37 | Progress Note ---
Assessment and Plan Assessment and plan: Today's labs are not available yet --Hypophosphatemia; Current Visit: Yes Status: Acute IV K-Phos, closely monitor electrolytes Supportive care --Sinus tachycardia; Current Visit: Yes Status: Acute Probably secondary dehydration, IV fluids Supportive care -- C. difficile colitis/possible Current Visit: Yes Status: Acute Oral vancomycin and flagyl IV hydration. Contact isolation Symptoms gradually improving --Severe diarrhea Current Visit: Yes Status: Acute Probably secondary to c-diff infection IV hydration antibiotic . Contact isolation Symptoms gradually improving --Severe sepsis Current Visit: Yes Status: Acute Continue current medical care IV hydration and abx therapy Follow blood culture and sensitivities ID evaluation recommendations noted and appreciated --Sacral decubitus ulcers/stage II-III Current Visit: Yes Status: Acute Wound care frequent turning the patient Wound care to evaluate for the need for surgical debridement -- Acute kidney injury Current Visit: Yes Status: Acute Vasomotor nephropathy, avoid nephrotoxins Monitor renal function, continue gentle hydration IV fluids --Hypernatremia. Significantly improved Current Visit: Yes Status: Acute Today sodium normal levels at 144 DC IV fluids due to fluid overload --DVT prophylaxis Current Visit: Yes Status: Acute Subcutaneous heparin Closely monitor the patient and adjust the management as needed Plan of care reviewed with the patient and his nurse Patient is a 65-year-old male who presents emergency room with complaints of fever, chills, diarrhea. Patient brought in by EMS. EMS states that the patient was found to be hypoxic 92% on room air placed on 3 L is 97% on 3 L. Patient found to have a heart rate of 140 and hypotension. Patient states his fever started yesterday. Patient states he has had diarrhea for a few days. Patient recently diagnosed with C. difficile and has not been given any treatment for it. Patient was diagnosed by his home health nurse.. Patient states he had his COVID-19 vaccine 4 weeks ago. Patient states he had both doses. Patient denies cough. ED work-up showed WBC 11.2, hemoglobin 10.5, platelets 285, sodium 141, potassium 5.5, creatinine 1.4, lactic acidosis 2.4, calcium 8.7 and a protein 7.2. Patient seen in ED antibiotics at bedside patient reported diarrhea and nausea with vomiting. This chest x-ray done shows reduced lung volume with questionable mild interstitial edema patient denies tobacco, alcohol, and illicit drug use. 11/27/2020 Patient continues to have diarrhea 11/28/2020 1 episode of loose bowel movement Otherwise doing well Alert and oriented and talking normally States he is feeling better 11/29/2020; Patient has sinus tachycardia, patient also has fluid overload Received IV Lasix, fluids discontinued, closely monitor Patient had code met due to tachycardia, resolved History Interval history: Seen and examined the patient at the bedside Patient's chart and medications reviewed Patient is chronically ill looking cachectic Minimally communicative receiving TPN Vital signs noted Hospitalist Physical - Constitutional Vitals: Temp Pulse Resp BP Pulse Ox 98.1 F 103 H 18 112/71 100 11/29/20 05:17 11/29/20 05:17 11/29/20 05:17 11/29/20 05:17 11/29/20 05:17 General appearance: Present: no acute distress, well-nourished - EENT Eyes: Present: PERRL, EOM intact - Neck Neck: Present: supple, normal ROM - Respiratory Respiratory effort: normal Respiratory: bilateral: diminished, negative: rales, rhonchi, wheezing - Cardiovascular Rhythm: regular Heart Sounds: Present: S1 & S2 - Extremities Extremities: no ischemia, No edema - Abdominal General gastrointestinal: soft, non-tender, non-distended, normal bowel sounds - Integumentary Integumentary: Present: clear, warm - Psychiatric Psychiatric: other (Confused minimally communicative) - Neurologic Neurologic: moves all extremities (Confused minimally communicative) Results - Labs CBC & Chem 7: 11/27/20 08:41 11/29/20 08:37 Labs: Laboratory Last Values WBC 10.4 K/mm3 (4.5-11.0) 11/27/20 08:41 RBC 3.01 M/mm3 (3.65-5.03) L 11/27/20 08:41 Hgb 8.2 gm/dl (11.8-15.2) L 11/27/20 08:41 Hct 25.4 % (35.5-45.6) L D 11/27/20 08:41 MCV 85 fl (84-94) 11/27/20 08:41 MCH 27 pg (28-32) L 11/27/20 08:41 MCHC 32 % (32-34) 11/27/20 08:41 RDW 17.1 % (13.2-15.2) H 11/27/20 08:41 Plt Count 151 K/mm3 (140-440) 11/27/20 08:41 Lymph % (Auto) 2.3 % (13.4-35.0) L 11/27/20 08:41 [place] % (Auto) 5.9 % (0.0-7.3) 11/27/20 08:41 Eos % (Auto) 7.1 % (0.0-4.3) H 11/27/20 08:41 Baso % (Auto) 0.6 % (0.0-1.8) 11/27/20 08:41 Lymph # (Auto) 0.2 K/mm3 (1.2-5.4) L 11/27/20 08:41 [place] # (Auto) 0.6 K/mm3 (0.0-0.8) 11/27/20 08:41 Eos # (Auto) 0.7 K/mm3 (0.0-0.4) H 11/27/20 08:41 Baso # (Auto) 0.1 K/mm3 (0.0-0.1) 11/27/20 08:41 Seg Neutrophils % 84.1 % (40.0-70.0) H 11/27/20 08:41 Seg Neutrophils # 8.7 K/mm3 (1.8-7.7) H 11/27/20 08:41 Sodium 149 mmol/L (137-145) H 11/28/20 07:11 Potassium 3.9 mmol/L (3.6-5.0) 11/28/20 07:11 Chloride 119.6 mmol/L (98-107) H 11/28/20 07:11 Carbon Dioxide 17 mmol/L (22-30) L 11/28/20 07:11 Anion Gap 16 mmol/L 11/28/20 07:11 BUN 50 mg/dL (9-20) H 11/28/20 07:11 Creatinine 2.1 mg/dL (0.8-1.3) H D 11/28/20 07:11 Estimated GFR 38 ml/min 11/28/20 07:11 BUN/Creatinine Ratio 24 % 11/28/20 07:11 Glucose 97 mg/dL (75-100) 11/28/20 07:11 POC Glucose 136 mg/dL (70-105) H 11/29/20 05:14 Hemoglobin A1c 6.8 % (4-6) H 11/27/20 08:41 Lactic Acid 2.40 mmol/L (0.7-2.0) H* 11/26/20 15:02 Calcium 8.0 mg/dL (8.4-10.2) L 11/28/20 07:11 Phosphorus 2.70 mg/dL (2.5-4.5) D 11/28/20 07:11 Magnesium 2.10 mg/dL (1.7-2.3) 11/28/20 07:11 Total Bilirubin 0.30 mg/dL (0.1-1.2) 11/25/20 23:44 AST 30 units/L (5-40) 11/25/20 23:44 ALT 20 units/L (7-56) 11/25/20 23:44 Alkaline Phosphatase 272 units/L (35-129) H 11/25/20 23:44 Total Protein 7.2 g/dL (6.3-8.2) 11/25/20 23:44 Albumin 2.8 g/dL (3.9-5) L 11/25/20 23:44 Albumin/Globulin Ratio 0.6 % 11/25/20 23:44 Triglycerides 91 mg/dL (2-149) 11/27/20 08:56 Urine Color Straw (Yellow) 11/28/20 05:50 Urine Turbidity Clear (Clear) 11/28/20 05:50 Urine pH 6.0 (5.0-7.0) 11/28/20 05:50 Ur Specific [place] 1.011 (1.003-1.030) 11/28/20 05:50 Urine Protein 100 mg/dl mg/dL (Negative) 11/28/20 05:50 Urine Glucose (UA) 150 mg/dL (Negative) 11/28/20 05:50 Urine Ketones Neg mg/dL (Negative) 11/28/20 05:50 Urine Blood Sm (Negative) 11/28/20 05:50 Urine Nitrite Neg (Negative) 11/28/20 05:50 Urine Bilirubin Neg (Negative) 11/28/20 05:50 Urine Urobilinogen < 2.0 mg/dL (<2.0) 11/28/20 05:50 Ur Leukocyte Esterase Neg (Negative) 11/28/20 05:50 Urine WBC (Auto) < 1.0 /HPF (0.0-6.0) 11/28/20 05:50 Urine RBC (Auto) 1.0 /HPF (0.0-6.0) 11/28/20 05:50 U Epithel Cells (Auto) 2.0 /HPF (0-13.0) 11/26/20 Unknown Urine Mucus Few /HPF 11/26/20 Unknown Blood Type A POSITIVE 11/26/20 15:00 Antibody Screen Negative 11/26/20 15:00 Microbiology: Microbiology 11/25/20 23:44 Peripheral/Venous Blood Culture - Preliminary NO GROWTH AFTER 72 HOURS 11/28/20 20:10 Peripheral/Venous Blood Culture - Preliminary Culture in Progress 11/28/20 20:10 Peripheral/Venous Blood Culture - Preliminary Culture in Progress 11/26/20 00:00 Peripheral/Venous Blood Culture - Preliminary Klebsiella Pneumoniae 11/25/20 Unknown Urine,Clean Catch Urine Culture - Final [place]/IV: Voiding Method Condom Catheter Active Medications - Current Medications Current Medications: Generic Name Dose Route Start Last Admin Trade Name Freq PRN Reason Stop Dose Admin Acetaminophen 650 mg 11/26/20 02:31 Acetaminophen 325 Mg Tab PO Q4H PRN Pain MILD(1-3)/Fever >100.5/BAY Acetaminophen 650 mg 11/26/20 08:00 11/26/20 22:33 Acetaminophen 650 Mg Rect Supp [place] 650 mg Q4H PRN Administration Pain, Mild (1-3) Hydrocodone Bitart/Acetaminophen 2 each 11/26/20 02:31 Hydrocodone/Acetaminophen 5-325 Mg Tab PO Q6H PRN Pain, Moderate (4-6) Al Hydrox/Mg Hydrox/Simethicone 30 ml 11/26/20 02:31 Alum-Mag Hydroxide-Simethicone [id number]/5ml Oral Liqd 30 Ml PO Q4H PRN Indigestion Albuterol 2.5 mg 11/27/20 21:55 Albuterol 2.5 Mg/3 Ml Nebu IH Q4HRT PRN Shortness Of Breath Famotidine 10 mg 11/28/20 10:00 11/28/20 21:58 Famotidine 20 Mg/2 Ml Inj IV 10 mg BID KATHRINE Administration Heparin Sodium (Porcine) 5,000 unit 11/26/20 10:00 11/28/20 21:58 Heparin 5,000 Unit/1 Ml Vial SUB-Q 5,000 unit Q12HR KATHRINE Administration Amino Acids/Electrolytes/Dextrose 2,400 mls @ 100 mls/hr 11/28/20 20:00 11/28/20 20:33 Tpn Adult IV 11/29/20 19:59 100 mls/hr DAILY@2000 KATHRINE Administration Protocol MEROPENEM/NS 1 GRAM/100 ML 1 gram in 100 mls @ 100 mls/hr 11/28/20 16:00 11/29/20 04:03 Merrem/Ns 1 Gram/100 Ml IV 100 mls/hr Q12H KATHRINE Administration Protocol Dextrose 1,000 mls @ 125 mls/hr 11/29/20 08:00 D5w IV DIRECT KATHRINE Magnesium Hydroxide 30 ml 11/26/20 02:51 Magnesium Hydroxide (Mom) Oral Liqd Udc PO Q4H PRN Constipation Metoclopramide HCl 5 mg 11/29/20 09:00 Metoclopramide 10 Mg/2 Ml Inj IV Q6H PRN Nausea And Vomiting Naloxone HCl 0.1 mg 11/26/20 02:31 Naloxone 0.4 Mg/1 Ml Inj IV Q2MIN PRN Res Rate </= 8 or 02 SAT < 92% Sodium Chloride 10 ml 11/26/20 10:00 11/28/20 21:59 Sodium Chloride 0.9% 10 Ml Flush Syringe IV 10 ml BID KATHRINE Administration Vancomycin HCl 250 mg 11/28/20 18:00 11/29/20 06:14 Vancomycin 250 Mg/10 Ml Oral Liqd PO 250 mg Q6HR KATHRINE Administration Protocol Nutrition/Malnutrition Assess - Dietary Evaluation Nutrition/Malnutrition Findings: Nutrition Notes Start: 11/26/20 12:00 Freq: Status: Active Protocol: Document 11/28/20 13:42 CHE (Rec: 11/28/20 13:49 CHE [email or web address]) Nutrition Notes Initial or Follow up Reassessment Current Diagnosis Acute Kidney Injury,Decubitus( Pressure Ulcer),Sepsis Other Pertinent Diagnosis c-diff, hx of stomach cancer on TPN Current Diet TPN at 84 ml/hr + clear liquids Labs/Tests Na 149 BUN 50 Cr 2.1 Pertinent Medications reviewed Height 5 ft 9 in Weight 63.5 kg [place] Body Weight (kg) 72.72 BMI 20.7 Weight Status Underweight Subjective/Other Information Day 2 TPN. Pt vomiting with clear liquids today, per RN. Will increase TPN rate. Burn Absent Trauma Absent GI Symptoms Nausea,Vomiting,Diarrhea Current % PO Negligible Minimum of two criteria Yes Energy Intake (severe) < or equal to 50% Estimated Energy Requirement > or equal to 5 days Muscle Mass Mild Depletion (non-severe) Reduced Anatomic Pathology Assistant Strength Measurably Reduced (severe) #1 Nutrition Diagnosis Malnutrition Diagnosis Progress(for reassessment Continues documentation) Is patient on ventilator? No Is Patient Ambulatory and/or Out of Bed No REE-([facility]-confined to bed) [phone] Calculation Used for Recommendations [facility] Additional Notes Protein: (1.25-1.5 g/kg) 79- 95g Fluid: 1ml/kcal or per MD Nutrition Intervention Change Diet Order: Advance as able Nutrition Support: TPN at 100 ml/hr. Dextrose: 8.3% AA 3.5% Na 0 mEq, K 24 mEq, Phos 16 mmol. MVI, Thiamine, Lipids Osmolality 791 Kcal 1,520 Protein (gm) 85 Carbohydrates (gm) 200 Fat (gm) 50 Fluid (mL) 2,650 Fiber (gm) 0 Goal #1 Meet needs as best as possible via TPN and Cl liq diet Goal #2 Diet advancement as able Anticipated Discharge Needs: Unable to determine at this time Follow-Up By: 11/29/20 Additional Comments Labs in AM: BMP, Mg, Phos
[2020-11-29] MEDS ORDERED: METOCLOPRAMIDE 10 MG/2 ML INJ IV PRN (09:00)
[2020-11-29 09:27] LABS: Calcium 8.3 mg/dL (8.4-10.2)
[2020-11-29] MEDS: HEPARIN 5,000 UNIT/1 ML VIAL SUB-Q SCH ×2 (10:06→22:31)
[2020-11-29] MEDS: FAMOTIDINE 20 MG/2 ML INJ IV SCH ×2 (10:06→22:30)
[2020-11-29] MEDS ORDERED: ONDANSETRON 4 MG/2 ML INJ ONE (10:07)
[2020-11-29] MEDS ORDERED: KETOROLAC 30 MG/1 ML INJ IV ONE (13:50)
--- NOTE | 2020-11-29 14:30 | Progress Note ---
Assessment and Plan Cultures: 11/26/2020 blood culture: Klebsiella pneumonia, unusual resistance profile, ceftriaxone resistant with an AURELIA of 8, cefazolin susceptible with an AURELIA of 8, cefepime susceptible with AURELIA of less than 2 11/25/2020 urine culture: Usual skin ayla 11/28/2020 Blood culture: in process Assessment: 59-year-old male with history of stomach cancer, on TPN, PORT in place, recent C. difficile colitis admitted on 11/25/2020 secondary to few days history of fever, chills, diarrhea: #Severe sepsis: Present on admission with tachycardia, leukocytosis, hypotension, hypoxia, elevated lactate; likely due to Cdiff colitis and GNR bacteremia. #Klebsiella bacteremia: Source could be intra-abdominal/gut translocation v/s PORT infection. UA not suggestive of infection. #Suspected C. difficile colitis: based on history, but no diarrhea here, sample not collected. #Acute hypoxemic respiratory failure: On nasal cannula O2. ? Volume overload. No obvious pneumonia seen #Sacral decubitus: Stage II-III not infected #Encephalopathy: acute. #SERGIO: renally dose abx. Recommendations: -Meropenem discontinued -IV cefepime, renally adjusted ordered -PO vancomycin 250 mg 4 times daily -Stool sample for C. difficile not sent yet, no point in collecting now -Follow-up blood cultures due to indwelling PORT -CT abdomen pelvis ordered without contrast to evaluate source -Wound care consultation/offloading sacral area Nilsa Marie MD, FACP [facility] ([facility] O: [phone] F: [phone] Subjective Date of service: 11/29/20 Principal diagnosis: Colitis Interval history: No fever. Denies any complaints. On oxygen via Ventimask. Denies any diarrhea. C. difficile sample not collected. Objective - Exam Narrative Exam: Physical Exam: Constitutional: awake, alert Head, Ears, Nose: Normocephalic, atraumatic. External ears, nose normal Eyes: Conjunctivae/corneas clear. No icterus. No ptosis. Neck: Supple, no meningeal signs Cardiovascular: S1, S2 + Respiratory: Few rhonchi GI: Soft, non-tender; bowel sounds normal. No peritoneal signs Musculoskeletal: No pedal edema, no cyanosis. Skin: No rash or abscess Hem/Lymphatic: No palpable cervical or supraclavicular nodes. No lymphangitis Psych: No agitation Neurological: awake, alert - Constitutional Vitals: Vital Signs Temp Pulse Resp BP Pulse Ox 98.1 F 103 H 18 112/71 100 11/29/20 05:17 11/29/20 05:17 11/29/20 05:17 11/29/20 05:17 11/29/20 05:17 Temperature -Last 24 Hours Temperature 98.1 F Temperature 98.4 F Temperature 97.9 F - Labs CBC & Chem 7: 11/27/20 08:41 11/29/20 08:37 Labs: Abnormal lab results 11/28/20 11/28/20 11/29/20 Range/Units 17:04 23:06 05:14 Chloride (98-107) mmol/L Carbon Dioxide (22-30) mmol/L BUN (9-20) mg/dL Creatinine (0.8-1.3) mg/dL Glucose (75-100) mg/dL POC Glucose 111 H 122 H 136 H (70-105) mg/dL Calcium (8.4-10.2) mg/dL Phosphorus (2.5-4.5) mg/dL 11/29/20 11/29/20 Range/Units 08:37 12:23 Chloride 113.6 H (98-107) mmol/L Carbon Dioxide 15 L (22-30) mmol/L BUN 54 H (9-20) mg/dL Creatinine 1.7 H (0.8-1.3) mg/dL Glucose 104 H (75-100) mg/dL POC Glucose 126 H (70-105) mg/dL Calcium 8.3 L (8.4-10.2) mg/dL Phosphorus 1.40 L D (2.5-4.5) mg/dL
[2020-11-29] MEDS: CEFEPIME/NS 1 GM/100 ML 1 GM/100 ML BAG IV SCH (15:58)
[2020-11-29] MEDS: KETOROLAC 30 MG/1 ML INJ IV PRN (17:08)
[2020-11-29] MEDS ORDERED: FUROSEMIDE 40 MG/4 ML INJ ONE (17:18)
--- NOTE | 2020-11-29 17:24 | Cat Scan Report ---
CT ABDOMEN AND PELVIS WITHOUT CONTRAST INDICATION / CLINICAL INFORMATION: sepsis, GNR bacteremia, colitis. TECHNIQUE: Axial CT images were obtained through the abdomen and pelvis without IV contrast. All CT scans at this location are performed using CT dose reduction for ALARA by means of automated exposure control. COMPARISON: 08/11/2018 FINDINGS: LOWER CHEST: Large right pleural effusion and compressive atelectasis of the right lung base. Left ba silar atelectasis. LIVER: There are couple of ill-defined low attenuating lesions within the liver, most prominently wit hin the right hepatic dome and inferior right hepatic lobe. Right hepatic dome lesion measures approx imately 4.6 cm. Moderate amount of perihepatic fluid. GALLBLADDER: Hyperdense rim around the gallbladder, may reflect some calcific deposition in the gallb ladder wall (i.e. porcelain gallbladder) gallbladder is moderately distended. Gallstones noted within the gallbladder. BILE DUCTS: No significant abnormality. PANCREAS: No significant abnormality. SPLEEN: No significant abnormality. ADRENALS: No significant abnormality. RIGHT KIDNEY / URETER: No significant abnormality. LEFT KIDNEY / URETER: No significant abnormality. STOMACH / SMALL BOWEL: No significant abnormality. COLON: No significant abnormality. APPENDIX: Nonvisualized PERITONEUM: Large amount of peritoneal fluid which is simple attenuating. LYMPH NODES: No significant adenopathy. AORTA / ARTERIES: Moderate atherosclerotic calcification without acute abnormality. IVC / VEINS: No significant abnormality. URINARY BLADDER: No significant abnormality. REPRODUCTIVE ORGANS: No significant abnormality. ADDITIONAL FINDINGS: None. SKELETAL SYSTEM: Postsurgical changes from posterior fusion of the thoracolumbar spine. IMPRESSION: 1. Large right pleural effusion and compressive atelectasis of the right lung base. Left basilar ate lectasis. 2. Multiple, ill-defined low attenuating lesions within the liver, suspicious for metastatic lesions . Recommend correlation with patient history. These were not present on contrast enhanced CT August 23. 3. 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 If concern f or acute cholecystitis, recommend nuclear medicine HIDA scan. 4. Large amount of perihepatic and abdominopelvic ascites. Signer Name: Salomón Espinal MD Signed: 11/29/2020 5:19 PM Workstation Name: [id number]
[2020-11-29] MEDS ORDERED: FUROSEMIDE 40 MG/4 ML INJ IV ONE (17:30)
[2020-11-29] MEDS ORDERED: D5W/0.9% NACL 1,000 ML IV SCH (18:00)
--- NOTE | 2020-11-29 18:12 | XRay Report ---
CHEST 1 VIEW INDICATION / CLINICAL INFORMATION: heart rate. COMPARISON: Chest radiograph 11/25/2020 FINDINGS: SUPPORT DEVICES: Stable position of a left subclavian Mediport. HEART / MEDIASTINUM: Stable. LUNGS / PLEURA: Moderate vascular congestion and mild bilateral interstitial prominence is slightly i ncreased compared with prior examination. Possible trace right effusion. No pneumothorax. ADDITIONAL FINDINGS: Hardware in the lower thoracic spine. IMPRESSION: 1. Slight interval increase of vascular congestion and interstitial prominence, and a possible trace right pleural effusion. Signer Name: Gosia Mckenna MD Signed: 11/29/2020 6:08 PM Workstation Name: [id number]
[2020-11-29] MEDS ORDERED: POTASSIUM PHOSPHATE 30 MMOL in SODIUM CHLORIDE 0.9% 500 ML 500 ML IV ONE (19:30)
[2020-11-29] MEDS ORDERED: TOTAL PARENTERAL NUTRITION 2,400 ML IV SCH (20:00)
[2020-11-30] MEDS: VANCOMYCIN 250 MG/10 ML ORAL LIQD PO SCH ×3 (01:09→12:39)
[2020-11-30] MEDS: CEFEPIME/NS 1 GM/100 ML 1 GM/100 ML BAG IV SCH ×2 (03:48→18:42)
[2020-11-30] MEDS: KETOROLAC 30 MG/1 ML INJ IV PRN (05:43)
[2020-11-30] MEDS: FUROSEMIDE 40 MG/4 ML INJ IV SCH (06:25)
[2020-11-30 09:19] LABS: Calcium 7.8 mg/dL (8.4-10.2)
[2020-11-30] MEDS ORDERED: SODIUM CHLORIDE 0.9% 250ML 250 ML IV ONE (11:00)
[2020-11-30] MEDS: FAMOTIDINE 20 MG/2 ML INJ IV SCH (11:07)
[2020-11-30] MEDS: HEPARIN 5,000 UNIT/1 ML VIAL SUB-Q SCH (11:07)
[2020-11-30] MEDS ORDERED: POTASSIUM PHOSPHATE 40 MMOL in SODIUM CHLORIDE 0.9% 500 ML 500 ML IV ONE (13:00)
--- NOTE | 2020-11-30 13:39 | Progress Note ---
Assessment and Plan Cultures: 11/26/2020 blood culture: Klebsiella pneumonia, unusual resistance profile, ceftriaxone resistant with an AURELIA of 8, cefazolin susceptible with an AURELIA of 8, cefepime susceptible with AURELIA of less than 2 11/25/2020 urine culture: Usual skin ayla 11/28/2020 Blood culture: no growth Assessment: 59-year-old male with history of stomach cancer, on TPN, PORT in place, recent C. difficile colitis admitted on 11/25/2020 secondary to few days history of fever, chills, diarrhea: #Severe sepsis: Present on admission with tachycardia, leukocytosis, hypotension, hypoxia, elevated lactate; likely due to bacteremia. #Klebsiella bacteremia: Source could be intra-abdominal/gut translocation v/s PORT infection. UA not suggestive of infection. CT abdomen and pelvis revealed findings of large pleural effusion, multiple ill-defined lesions within the liver suspicious for metastatic disease, also there was distention of the gallbladder with gallstones with concern for possible acute cholecystitis, large amount of perihepatic and abdominopelvic ascites. #Suspected C. difficile: based on history, but no diarrhea here, sample not collected. CT does not show any colitis. #Acute hypoxemic respiratory failure: On nasal cannula O2. ? Volume overload. No obvious pneumonia seen #Sacral decubitus: Stage II-III not infected #Encephalopathy #SERGIO: renally dose abx. Recommendations: -Discussed with RN, patient having trouble swallowing oral vancomycin, hence will discontinue PO Vancomycin and switch to IV Flagyl -Continue IV cefepime daily adjusted -Given worsening renal function, CT abdomen and pelvis findings of metastatic disease, recommend goals of care discussion and possible hospice d/w Dr. Aldo Marie MD, FACP [facility] ([facility] O: [phone] F: [phone] Subjective Date of service: 11/30/20 Principal diagnosis: Colitis Interval history: Fever of 102.8 F yesterday. No specific complaints but poor historian. Discussed with RN, patient having trouble swallowing oral vancomycin. Objective - Exam Narrative Exam: Physical Exam: Constitutional: awake, alert Head, Ears, Nose: Normocephalic, atraumatic. External ears, nose normal Eyes: Conjunctivae/corneas clear. No icterus. No ptosis. Neck: Supple, no meningeal signs Cardiovascular: S1, S2 + Respiratory: Few rhonchi GI: Soft, non-tender; bowel sounds normal. No peritoneal signs Musculoskeletal: No pedal edema, no cyanosis. PORT + Skin: No rash or abscess Hem/Lymphatic: No palpable cervical or supraclavicular nodes. No lymphangitis Psych: No agitation Neurological: awake, alert - Constitutional Vitals: Vital Signs Temp Pulse Resp BP Pulse Ox 98.1 F 110 H 26 H 69/43 91 11/30/20 10:41 11/30/20 10:41 11/30/20 10:41 11/30/20 10:41 11/30/20 10:41 Temperature -Last 24 Hours Temperature 98.1 F Temperature 98.4 F Temperature 98.4 F Temperature 98.1 F - Labs CBC & Chem 7: 11/27/20 08:41 11/30/20 08:27 Labs: Abnormal lab results 11/30/20 11/30/20 Range/Units 08:27 10:37 Chloride 110.4 H (98-107) mmol/L Carbon Dioxide 11 L (22-30) mmol/L BUN 74 H (9-20) mg/dL Creatinine 3.1 H D (0.8-1.3) mg/dL Glucose 131 H (75-100) mg/dL POC Glucose 138 H (70-105) mg/dL Calcium 7.8 L (8.4-10.2) mg/dL Phosphorus 2.20 L D (2.5-4.5) mg/dL Magnesium 1.60 L (1.7-2.3) mg/dL
[2020-11-30] MEDS ORDERED: MAGNESIUM SULFATE 2 GM/50 ML BAG IV ONE (14:00)
--- NOTE | 2020-11-30 14:19 | Progress Note ---
Assessment and Plan Assessment and plan: Today's labs are not available yet --Hypophosphatemia; Current Visit: Yes Status: Acute IV K-Phos, closely monitor electrolytes Supportive care --Hypomagnesemia --Sinus tachycardia; Current Visit: Yes Status: Acute Probably secondary dehydration, IV fluids. Requiring supplemental oxygen Supportive care --Acute hypoxic respiratory failure Today on nonrebreather 15 L Wean as tolerated, nebulizers Supportive care -- C. difficile colitis/possible Current Visit: Yes Status: Acute . Patient unable to tolerate oral vancomycin Continue IV Flagyl, ID following Contact isolation --Severe diarrhea Current Visit: Yes Status: Acute Probably secondary to c-diff infection IV hydration antibiotic . Contact isolation Symptoms gradually improving --Severe sepsis Current Visit: Yes Status: Acute Continue current medical care IV hydration and abx therapy Follow blood culture and sensitivities ID evaluation recommendations noted and appreciated --Klebsiella bacteremia; Continue cefepime --Sacral decubitus ulcers/stage II-III Current Visit: Yes Status: Acute Wound care frequent turning the patient Wound care to evaluate for the need for surgical debridement --History of stomach cancer; On TPN supportive care -- Acute kidney injury Current Visit: Yes Status: Acute Vasomotor nephropathy, avoid nephrotoxins Monitor renal function, continue gentle hydration IV fluids --Hypernatremia. Significantly improved Current Visit: Yes Status: Acute Today sodium normal levels at 144 DC IV fluids due to fluid overload --DVT prophylaxis Current Visit: Yes Status: Acute Subcutaneous heparin Closely monitor the patient and adjust the management as needed Plan of care reviewed with the patient and his nurse Patient is a 65-year-old male who presents emergency room with complaints of fever, chills, diarrhea. Patient brought in by EMS. EMS states that the patient was found to be hypoxic 92% on room air placed on 3 L is 97% on 3 L. Patient found to have a heart rate of 140 and hypotension. Patient states his fever started yesterday. Patient states he has had diarrhea for a few days. Patient recently diagnosed with C. difficile and has not been given any treatment for it. Patient was diagnosed by his home health nurse.. Patient states he had his COVID-19 vaccine 4 weeks ago. Patient states he had both doses. Patient denies cough. ED work-up showed WBC 11.2, hemoglobin 10.5, platelets 285, sodium 141, potassium 5.5, creatinine 1.4, lactic acidosis 2.4, calcium 8.7 and a protein 7.2. Patient seen in ED antibiotics at bedside patient reported diarrhea and nausea with vomiting. This chest x-ray done shows reduced lung volume with questionable mild interstitial edema patient denies tobacco, alcohol, and illicit drug use. 11/27/2020 Patient continues to have diarrhea 11/28/2020 1 episode of loose bowel movement Otherwise doing well Alert and oriented and talking normally States he is feeling better 11/29/2020; Patient has sinus tachycardia, patient also has fluid overload Received IV Lasix, fluids discontinued, closely monitor Patient had code met due to tachycardia, resolved 11/30/2020; Patient is critically ill, tachycardic Agitated, severe sepsis, continue cefepime And Flagyl for C. difficile Very poor prognosis recommend hospice History Interval history: I have seen and examined the patient at the bedside Patient's chart and medications reviewed Patient is severely agitated in mild distress Vital signs noted Hospitalist Physical - Constitutional Vitals: Temp Pulse Resp BP Pulse Ox 98.1 F 110 H 26 H 69/43 91 11/30/20 10:41 11/30/20 10:41 11/30/20 10:41 11/30/20 10:41 11/30/20 10:41 General appearance: Present: mild distress, cachectic, disheveled - EENT Eyes: Present: PERRL, EOM intact - Neck Neck: Present: supple, normal ROM - Respiratory Respiratory effort: normal Respiratory: bilateral: diminished, negative: rales, rhonchi, wheezing - Cardiovascular Rhythm: regular Heart Sounds: Present: S1 & S2 - Extremities Extremities: no ischemia, No edema - Abdominal General gastrointestinal: soft, non-tender, non-distended, normal bowel sounds - Integumentary Integumentary: Present: clear, warm - Psychiatric Psychiatric: appropriate mood/affect, other - Neurologic Neurologic: moves all extremities (Minimally communicative), other Results - Labs CBC & Chem 7: 11/27/20 08:41 12/01/20 05:47 Labs: Laboratory Last Values WBC 10.4 K/mm3 (4.5-11.0) 11/27/20 08:41 RBC 3.01 M/mm3 (3.65-5.03) L 11/27/20 08:41 Hgb 8.2 gm/dl (11.8-15.2) L 11/27/20 08:41 Hct 25.4 % (35.5-45.6) L D 11/27/20 08:41 MCV 85 fl (84-94) 11/27/20 08:41 MCH 27 pg (28-32) L 11/27/20 08:41 MCHC 32 % (32-34) 11/27/20 08:41 RDW 17.1 % (13.2-15.2) H 11/27/20 08:41 Plt Count 151 K/mm3 (140-440) 11/27/20 08:41 Lymph % (Auto) 2.3 % (13.4-35.0) L 11/27/20 08:41 Dickinson % (Auto) 5.9 % (0.0-7.3) 11/27/20 08:41 Eos % (Auto) 7.1 % (0.0-4.3) H 11/27/20 08:41 Baso % (Auto) 0.6 % (0.0-1.8) 11/27/20 08:41 Lymph # (Auto) 0.2 K/mm3 (1.2-5.4) L 11/27/20 08:41 Dickinson # (Auto) 0.6 K/mm3 (0.0-0.8) 11/27/20 08:41 Eos # (Auto) 0.7 K/mm3 (0.0-0.4) H 11/27/20 08:41 Baso # (Auto) 0.1 K/mm3 (0.0-0.1) 11/27/20 08:41 Seg Neutrophils % 84.1 % (40.0-70.0) H 11/27/20 08:41 Seg Neutrophils # 8.7 K/mm3 (1.8-7.7) H 11/27/20 08:41 Sodium 141 mmol/L (137-145) 11/30/20 08:27 Potassium 3.6 mmol/L (3.6-5.0) 11/30/20 08:27 Chloride 110.4 mmol/L (98-107) H 11/30/20 08:27 Carbon Dioxide 11 mmol/L (22-30) L 11/30/20 08:27 Anion Gap 23 mmol/L 11/30/20 08:27 BUN 74 mg/dL (9-20) H 11/30/20 08:27 Creatinine 3.1 mg/dL (0.8-1.3) H D 11/30/20 08:27 Estimated GFR 25 ml/min 11/30/20 08:27 BUN/Creatinine Ratio 24 % 11/30/20 08:27 Glucose 131 mg/dL (75-100) H 11/30/20 08:27 POC Glucose 138 mg/dL (70-105) H 11/30/20 10:37 Hemoglobin A1c 6.8 % (4-6) H 11/27/20 08:41 Lactic Acid 2.40 mmol/L (0.7-2.0) H* 11/26/20 15:02 Calcium 7.8 mg/dL (8.4-10.2) L 11/30/20 08:27 Phosphorus 2.20 mg/dL (2.5-4.5) L D 11/30/20 08:27 Magnesium 1.60 mg/dL (1.7-2.3) L 11/30/20 08:27 Total Bilirubin 0.30 mg/dL (0.1-1.2) 11/25/20 23:44 AST 30 units/L (5-40) 11/25/20 23:44 ALT 20 units/L (7-56) 11/25/20 23:44 Alkaline Phosphatase 272 units/L (35-129) H 11/25/20 23:44 Total Protein 7.2 g/dL (6.3-8.2) 11/25/20 23:44 Albumin 2.8 g/dL (3.9-5) L 11/25/20 23:44 Albumin/Globulin Ratio 0.6 % 11/25/20 23:44 Triglycerides 91 mg/dL (2-149) 11/27/20 08:56 Urine Color Straw (Yellow) 11/28/20 05:50 Urine Turbidity Clear (Clear) 11/28/20 05:50 Urine pH 6.0 (5.0-7.0) 11/28/20 05:50 Ur Specific [place] 1.011 (1.003-1.030) 11/28/20 05:50 Urine Protein 100 mg/dl mg/dL (Negative) 11/28/20 05:50 Urine Glucose (UA) 150 mg/dL (Negative) 11/28/20 05:50 Urine Ketones Neg mg/dL (Negative) 11/28/20 05:50 Urine Blood Sm (Negative) 11/28/20 05:50 Urine Nitrite Neg (Negative) 11/28/20 05:50 Urine Bilirubin Neg (Negative) 11/28/20 05:50 Urine Urobilinogen < 2.0 mg/dL (<2.0) 11/28/20 05:50 Ur Leukocyte Esterase Neg (Negative) 11/28/20 05:50 Urine WBC (Auto) < 1.0 /HPF (0.0-6.0) 11/28/20 05:50 Urine RBC (Auto) 1.0 /HPF (0.0-6.0) 11/28/20 05:50 U Epithel Cells (Auto) 2.0 /HPF (0-13.0) 11/26/20 Unknown Urine Mucus Few /HPF 11/26/20 Unknown Blood Type A POSITIVE 11/26/20 15:00 Antibody Screen Negative 11/26/20 15:00 Microbiology: Microbiology 11/25/20 23:44 Peripheral/Venous Blood Culture - Preliminary NO GROWTH AFTER 4 DAYS 11/28/20 20:10 Peripheral/Venous Blood Culture - Preliminary NO GROWTH AFTER 24 HOURS 11/28/20 20:10 Peripheral/Venous Blood Culture - Preliminary NO GROWTH AFTER 24 HOURS 11/26/20 00:00 Peripheral/Venous Blood Culture - Preliminary Klebsiella Pneumoniae Atkinson/IV: Voiding Method Condom Catheter Active Medications - Current Medications Current Medications: Generic Name Dose Route Start Last Admin Trade Name Freq PRN Reason Stop Dose Admin Acetaminophen 650 mg 11/26/20 02:31 Acetaminophen 325 Mg Tab PO Q4H PRN Pain MILD(1-3)/Fever >100.5/BAY Acetaminophen 650 mg 11/26/20 08:00 11/26/20 22:33 Acetaminophen 650 Mg Rect Supp [place] 650 mg Q4H PRN Administration Pain, Mild (1-3) Hydrocodone Bitart/Acetaminophen 2 each 11/26/20 02:31 Hydrocodone/Acetaminophen 5-325 Mg Tab PO Q6H PRN Pain, Moderate (4-6) Al Hydrox/Mg Hydrox/Simethicone 30 ml 11/26/20 02:31 Alum-Mag Hydroxide-Simethicone [phone]/[phone] Oral Liqd 30 Ml PO Q4H PRN Indigestion Albuterol 2.5 mg 11/27/20 21:55 Albuterol 2.5 Mg/3 Ml Nebu IH Q4HRT PRN Shortness Of Breath Famotidine 10 mg 11/28/20 10:00 11/30/20 11:07 Famotidine 20 Mg/2 Ml Inj IV 10 mg BID KATHRINE Administration Furosemide 40 mg 11/30/20 06:00 11/30/20 06:25 Furosemide 40 Mg/4 Ml Inj IV Not Given DAILY@0600 [facility] Heparin Sodium (Porcine) 5,000 unit 11/26/20 10:00 11/30/20 11:07 Heparin 5,000 Unit/1 Ml Vial SUB-Q 5,000 unit Q12HR [facility] Administration Amino Acids/Electrolytes/Dextrose 2,400 mls @ 100 mls/hr 11/29/20 20:00 11/29/20 20:46 Tpn Adult IV 11/30/20 19:59 100 mls/hr DAILY@1999 [facility] Administration Protocol Amino Acids/Electrolytes/Dextrose 2,400 mls @ 100 mls/hr 11/30/20 20:00 Tpn Adult IV 12/01/20 19:59 DAILY@1999 [facility] Protocol Fat Emulsion Intravenous 250 mls @ 21 mls/hr 11/30/20 20:00 Intralipid 20% IV 12/01/20 19:59 DAILY@1999 [facility] Magnesium Sulfate 2 gm in 50 mls @ 25 mls/hr 11/30/20 14:00 11/30/20 13:45 Magnesium Sulfate 2gm/50ml IV 11/30/20 15:59 25 mls/hr ONCE ONE Administration Potassium Phosphate 40 mmol/ 513.3333 mls @ 83 mls/hr 11/30/20 13:00 Sodium Chloride IV 11/30/20 19:11 ONCE ONE Cefepime HCl 1 gm in 100 mls @ 200 mls/hr 11/30/20 14:00 Cefepime/Ns 1 Gm/100 Ml IV Q24H [facility] Protocol Metronidazole 500 mg in 100 mls @ 100 mls/hr 11/30/20 14:00 Flagyl 500 Mg/100 Ml IV Q8H [facility] Protocol Ketorolac Tromethamine 15 mg 11/29/20 14:00 11/30/20 05:43 Ketorolac 30 Mg/1 Ml Inj IV 12/04/20 13:59 15 mg Q6H PRN Administration Pain, Mild (1-3) Magnesium Hydroxide 30 ml 11/26/20 02:51 Magnesium Hydroxide (Mom) Oral Liqd Udc PO Q4H PRN Constipation Metoclopramide HCl 5 mg 11/29/20 09:00 11/30/20 05:43 Metoclopramide 10 Mg/2 Ml Inj IV 5 mg Q6H PRN Administration Nausea And Vomiting Naloxone HCl 0.1 mg 11/26/20 02:31 Naloxone 0.4 Mg/1 Ml Inj IV Q2MIN PRN Res Rate </= 8 or 02 SAT < 92% Sodium Chloride 10 ml 11/26/20 10:00 11/30/20 11:08 Sodium Chloride 0.9% 10 Ml Flush Syringe IV 10 ml BID KATHRINE Administration Nutrition/Malnutrition Assess - Dietary Evaluation Nutrition/Malnutrition Findings: Nutrition Notes Start: 11/26/20 12:00 Freq: Status: Active Protocol: Document 11/30/20 10:01 CHE (Rec: 11/30/20 10:07 [id number]) Nutrition Notes Initial or Follow up Reassessment Current Diagnosis Acute Kidney Injury,Decubitus( Pressure Ulcer),Sepsis Other Pertinent Diagnosis c-diff, hx of stomach cancer on TPN Current Diet TPN at 84 ml/hr + clear liquids Labs/Tests BUN 74 Cr 3.1 Phos 2.2 Mg 1.6 Pertinent Medications K Phos 30 mmol Height 5 ft 9 in Weight 63.3 kg [place] Body Weight (kg) 72.72 BMI 20.6 Weight Status Underweight Subjective/Other Information Day 4 TPN. Unable to increase phos significantly again today due to TPN w/o Na. Will need Phos piggyback. Per RN, pt vomiting almost everything except water and broth. 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 No Is Patient Ambulatory and/or Out of Bed No REE-([place]-St. Jeor-confined to bed) 4272.716 Calculation Used for Recommendations [facility] Additional Notes Protein: (1.25-1.5 g/kg) 79- 95g Fluid: 1ml/kcal or per MD Nutrition Intervention Change Diet Order: Advance PO diet as medically feasible Nutrition Support: TPN at 100 ml/hr. Dextrose: 12.5% Phos 20 mmol. K 34 mEq Mg 10 mEq MVI, lipids Osmolality 911 mOsm Kcal 1,860 Protein (gm) 85 Carbohydrates (gm) 300 Fat (gm) 50 Fluid (mL) 2,650 Fiber (gm) 0 Goal #1 Meet needs as best as possible via TPN and Cl liq diet Goal #2 Diet advancement as able Anticipated Discharge Needs: Unable to determine at this time Follow-Up By: 12/01/20 Additional Comments Labs in AM: BMP, Mg, Phos
[2020-11-30] MEDS: metroNIDAZOLE/NS 500 MG/100 ML 500 MG/100 ML BAG IV SCH (18:42)
[2020-11-30] MEDS: ACETAMINOPHEN 650 MG RECT SUPP PR PRN (18:43)
[2020-11-30] MEDS ORDERED: TOTAL PARENTERAL NUTRITION 2,400 ML IV SCH (20:00)
[2020-11-30] MEDS ORDERED: FAT EMULSIONS 20% 250 ML IV SCH ×2 (20:00)
[2020-12-01] MEDS: FAMOTIDINE 20 MG/2 ML INJ IV SCH ×2 (00:28→09:43)
[2020-12-01] MEDS: HEPARIN 5,000 UNIT/1 ML VIAL SUB-Q SCH ×2 (00:28→09:43)
[2020-12-01] MEDS: metroNIDAZOLE/NS 500 MG/100 ML 500 MG/100 ML BAG IV SCH ×3 (00:28→15:00)
[2020-12-01] MEDS: FUROSEMIDE 40 MG/4 ML INJ IV SCH (06:08)
[2020-12-01 06:31] LABS: Calcium 8.1 mg/dL (8.4-10.2)
--- NOTE | 2020-12-01 11:55 | Event Note ---
Date: 12/01/20 I spoke with patient's daughter next of kin Ms. Jalen Loza at [phone], and discussed in detail patient's critical condition ,tests and reports poor prognosis, his hypotension and hypoxia. I explained to the daughter patient is critically ill with very poor prognosis, discussed the goals of treatment and the CODE STATUS. I also discussed with her the options of hospice and palliative care in view of his multiple medical problems including metastatic cancer and severe sepsis, she refused hospice/palliative care.She wants everything to be done and requested full CODE STATUS at this point. The above conversation is conveyed to the patient's nurse Ms. Brar.
--- NOTE | 2020-12-01 12:30 | Progress Note ---
Assessment and Plan Assessment and plan: --Hypophosphatemia; Current Visit: Yes Status: Acute IV K-Phos, closely monitor electrolytes Supportive care --Hypomagnesemia --Sinus tachycardia; Current Visit: Yes Status: Acute Probably secondary dehydration, IV fluids. Requiring supplemental oxygen Supportive care --Acute hypoxic respiratory failure Today on nonrebreather 15 L Wean as tolerated, nebulizers Supportive care -- C. difficile colitis/possible Current Visit: Yes Status: Acute . Patient unable to tolerate oral vancomycin Continue IV Flagyl, ID following Contact isolation --Severe diarrhea Current Visit: Yes Status: Acute Probably secondary to c-diff infection IV hydration antibiotic . Contact isolation Symptoms gradually improving --Severe sepsis Current Visit: Yes Status: Acute Due to Klebsiella bacteremia, sacral decubitus ulcers IV hydration and abx therapy Follow blood culture and sensitivities ID evaluation recommendations noted and appreciated --Klebsiella bacteremia; Continue cefepime --Sacral decubitus ulcers/stage II-III Current Visit: Yes Status: Acute Wound care frequent turning the patient Wound care to evaluate for the need for surgical debridement --History of metastatic stomach cancer; On TPN supportive care -- Acute kidney injury Current Visit: Yes Status: Acute Vasomotor nephropathy, avoid nephrotoxins Monitor renal function, continue gentle hydration IV fluids --Hypernatremia. Significantly improved Current Visit: Yes Status: Acute Today sodium normal levels at 144 DC IV fluids due to fluid overload --DVT prophylaxis Current Visit: Yes Status: Acute Subcutaneous heparin Closely monitor the patient and adjust the management as needed Plan of care reviewed with the patient and his nurse Hospitalist Physical - Constitutional Vitals: Temp Pulse Resp BP Pulse Ox 98 F 108 H 20 85/48 93 12/01/20 10:02 12/01/20 10:02 12/01/20 10:02 12/01/20 10:02 12/01/20 10:02 General appearance: Present: mild distress, cachectic, disheveled Results - Labs CBC & Chem 7: 11/27/20 08:41 12/01/20 05:47 Labs: Laboratory Last Values WBC 10.4 K/mm3 (4.5-11.0) 11/27/20 08:41 RBC 3.01 M/mm3 (3.65-5.03) L 11/27/20 08:41 Hgb 8.2 gm/dl (11.8-15.2) L 11/27/20 08:41 Hct 25.4 % (35.5-45.6) L D 11/27/20 08:41 MCV 85 fl (84-94) 11/27/20 08:41 MCH 27 pg (28-32) L 11/27/20 08:41 MCHC 32 % (32-34) 11/27/20 08:41 RDW 17.1 % (13.2-15.2) H 11/27/20 08:41 Plt Count 151 K/mm3 (140-440) 11/27/20 08:41 Lymph % (Auto) 2.3 % (13.4-35.0) L 11/27/20 08:41 [place] % (Auto) 5.9 % (0.0-7.3) 11/27/20 08:41 Eos % (Auto) 7.1 % (0.0-4.3) H 11/27/20 08:41 Baso % (Auto) 0.6 % (0.0-1.8) 11/27/20 08:41 Lymph # (Auto) 0.2 K/mm3 (1.2-5.4) L 11/27/20 08:41 [place] # (Auto) 0.6 K/mm3 (0.0-0.8) 11/27/20 08:41 Eos # (Auto) 0.7 K/mm3 (0.0-0.4) H 11/27/20 08:41 Baso # (Auto) 0.1 K/mm3 (0.0-0.1) 11/27/20 08:41 Seg Neutrophils % 84.1 % (40.0-70.0) H 11/27/20 08:41 Seg Neutrophils # 8.7 K/mm3 (1.8-7.7) H 11/27/20 08:41 Sodium 139 mmol/L (137-145) 12/01/20 05:47 Potassium 4.1 mmol/L (3.6-5.0) 12/01/20 05:47 Chloride 108.1 mmol/L (98-107) H 12/01/20 05:47 Carbon Dioxide 12 mmol/L (22-30) L 12/01/20 05:47 Anion Gap 23 mmol/L 12/01/20 05:47 BUN 89 mg/dL (9-20) H 12/01/20 05:47 Creatinine 3.6 mg/dL (0.8-1.3) H 12/01/20 05:47 Estimated GFR 21 ml/min 12/01/20 05:47 BUN/Creatinine Ratio 25 % 12/01/20 05:47 Glucose 181 mg/dL (75-100) H 12/01/20 05:47 POC Glucose 191 mg/dL (70-105) H 12/01/20 11:05 Hemoglobin A1c 6.8 % (4-6) H 11/27/20 08:41 Lactic Acid 2.40 mmol/L (0.7-2.0) H* 11/26/20 15:02 Calcium 8.1 mg/dL (8.4-10.2) L 12/01/20 05:47 Phosphorus 4.50 mg/dL (2.5-4.5) D 12/01/20 05:47 Magnesium 2.30 mg/dL (1.7-2.3) 12/01/20 05:47 Total Bilirubin 0.30 mg/dL (0.1-1.2) 11/25/20 23:44 AST 30 units/L (5-40) 11/25/20 23:44 ALT 20 units/L (7-56) 11/25/20 23:44 Alkaline Phosphatase 272 units/L (35-129) H 11/25/20 23:44 Total Protein 7.2 g/dL (6.3-8.2) 11/25/20 23:44 Albumin 2.8 g/dL (3.9-5) L 11/25/20 23:44 Albumin/Globulin Ratio 0.6 % 11/25/20 23:44 Triglycerides 91 mg/dL (2-149) 11/27/20 08:56 Urine Color Straw (Yellow) 11/28/20 05:50 Urine Turbidity Clear (Clear) 11/28/20 05:50 Urine pH 6.0 (5.0-7.0) 11/28/20 05:50 Ur Specific Jean 1.011 (1.003-1.030) 11/28/20 05:50 Urine Protein 100 mg/dl mg/dL (Negative) 11/28/20 05:50 Urine Glucose (UA) 150 mg/dL (Negative) 11/28/20 05:50 Urine Ketones Neg mg/dL (Negative) 11/28/20 05:50 Urine Blood Sm (Negative) 11/28/20 05:50 Urine Nitrite Neg (Negative) 11/28/20 05:50 Urine Bilirubin Neg (Negative) 11/28/20 05:50 Urine Urobilinogen < 2.0 mg/dL (<2.0) 11/28/20 05:50 Ur Leukocyte Esterase Neg (Negative) 11/28/20 05:50 Urine WBC (Auto) < 1.0 /HPF (0.0-6.0) 11/28/20 05:50 Urine RBC (Auto) 1.0 /HPF (0.0-6.0) 11/28/20 05:50 U Epithel Cells (Auto) 2.0 /HPF (0-13.0) 11/26/20 Unknown Urine Mucus Few /HPF 11/26/20 Unknown Blood Type A POSITIVE 11/26/20 15:00 Antibody Screen Negative 11/26/20 15:00 Microbiology: Microbiology 11/25/20 23:44 Peripheral/Venous Blood Culture - Final NO GROWTH AFTER 5 DAYS 11/28/20 20:10 Peripheral/Venous Blood Culture - Preliminary NO GROWTH AFTER 48 HOURS 11/28/20 20:10 Peripheral/Venous Blood Culture - Preliminary NO GROWTH AFTER 48 HOURS [place]/IV: Voiding Method Incontinent Active Medications - Current Medications Current Medications: Generic Name Dose Route Start Last Admin Trade Name Freq PRN Reason Stop Dose Admin Acetaminophen 650 mg 11/26/20 02:31 Acetaminophen 325 Mg Tab PO Q4H PRN Pain MILD(1-3)/Fever >100.5/BAY Acetaminophen 650 mg 11/26/20 08:00 11/30/20 18:43 Acetaminophen 650 Mg Rect Supp [place] 650 mg Q4H PRN Administration Pain, Mild (1-3) Hydrocodone Bitart/Acetaminophen 2 each 11/26/20 02:31 Hydrocodone/Acetaminophen 5-325 Mg Tab PO Q6H PRN Pain, Moderate (4-6) Al Hydrox/Mg Hydrox/Simethicone 30 ml 11/26/20 02:31 Alum-Mag Hydroxide-Simethicone [id number]/5ml Oral Liqd 30 Ml PO Q4H PRN Indigestion Albuterol 2.5 mg 11/27/20 21:55 11/30/20 15:41 Albuterol 2.5 Mg/3 Ml Nebu IH 2.5 mg Q4HRT PRN Administration Shortness Of Breath Famotidine 10 mg 11/28/20 10:00 12/01/20 09:43 Famotidine 20 Mg/2 Ml Inj IV 10 mg BID KATHRINE Administration Furosemide 40 mg 11/30/20 06:00 12/01/20 06:08 Furosemide 40 Mg/4 Ml Inj IV Not Given DAILY@0600 [facility] Heparin Sodium (Porcine) 5,000 unit 11/26/20 10:00 12/01/20 09:43 Heparin 5,000 Unit/1 Ml Vial SUB-Q 5,000 unit Q12HR KATHRINE Administration Amino Acids/Electrolytes/Dextrose 2,400 mls @ 100 mls/hr 11/30/20 20:00 12/01/20 01:04 Tpn Adult IV 12/01/20 19:59 100 mls/hr DAILY@1999 [facility] Administration Protocol Fat Emulsion Intravenous 250 mls @ 21 mls/hr 11/30/20 20:00 12/01/20 01:02 Intralipid 20% IV 12/01/20 19:59 21 mls/hr DAILY@1999 [facility] Administration Cefepime HCl 1 gm in 100 mls @ 200 mls/hr 11/30/20 14:00 11/30/20 18:42 Cefepime/Ns 1 Gm/100 Ml IV Not Given Q24H [facility] Protocol Metronidazole 500 mg in 100 mls @ 100 mls/hr 11/30/20 14:00 12/01/20 06:08 Flagyl 500 Mg/100 Ml IV 100 mls/hr Q8H [facility] Administration Protocol Amino Acids/Electrolytes/Dextrose 2,400 mls @ 100 mls/hr 12/01/20 20:00 Tpn Adult IV 12/02/20 19:59 DAILY@1999 [facility] Protocol Ketorolac Tromethamine 15 mg 11/29/20 14:00 11/30/20 05:43 Ketorolac 30 Mg/1 Ml Inj IV 12/04/20 13:59 15 mg Q6H PRN Administration Pain, Mild (1-3) Magnesium Hydroxide 30 ml 11/26/20 02:51 Magnesium Hydroxide (Mom) Oral Liqd Udc PO Q4H PRN Constipation Metoclopramide HCl 5 mg 11/29/20 09:00 11/30/20 05:43 Metoclopramide 10 Mg/2 Ml Inj IV 5 mg Q6H PRN Administration Nausea And Vomiting Naloxone HCl 0.1 mg 11/26/20 02:31 Naloxone 0.4 Mg/1 Ml Inj IV Q2MIN PRN Res Rate </= 8 or 02 SAT < 92% Sodium Chloride 10 ml 11/26/20 10:00 12/01/20 09:43 Sodium Chloride 0.9% 10 Ml Flush Syringe IV 10 ml BID KATHRINE Administration Nutrition/Malnutrition Assess - Dietary Evaluation Nutrition/Malnutrition Findings: Nutrition Notes Start: 11/26/20 12:00 Freq: Status: Active Protocol: Document 12/01/20 09:21 (Rec: 12/01/20 09:26 [email or web address]) Nutrition Notes Initial or Follow up Reassessment Current Diagnosis Acute Kidney Injury,Decubitus( Pressure Ulcer),Sepsis Other Pertinent Diagnosis c-diff, hx of stomach cancer on TPN Current Diet TPN at 84 ml/hr + clear liquids Labs/Tests Cr 3.6 BUN 89 Pertinent Medications K Phos 40 mmol Mg Sulfate 2 gm Height 5 ft 9 in Weight 63.2 kg [place] Body Weight (kg) 72.72 BMI 20.5 Weight Status Underweight Subjective/Other Information Day 5 TPN. Pt with very poor prognosis. 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 No Is Patient Ambulatory and/or Out of Bed No REE-([facility]-confined to bed) [phone] Calculation Used for Recommendations [facility] Additional Notes Protein: (1.25-1.5 g/kg) 79- 95g Fluid: 1ml/kcal or per MD Nutrition Intervention Change Diet Order: Advance PO diet as medically feasible Nutrition Support: TPN at 100 ml/hr. MVI, MTE Osmolality 911 mOsm Kcal 1,360 Protein (gm) 85 Carbohydrates (gm) 300 Fat (gm) 0 Fluid (mL) 2,400 Fiber (gm) 0 Goal #1 Meet needs as best as possible via TPN and Cl liq diet Goal #2 Diet advancement as able Anticipated Discharge Needs: Unable to determine at this time Follow-Up By: 12/02/20 Additional Comments Labs in AM: Mg MISSY, Steve
--- NOTE | 2020-12-01 12:55 | Progress Note ---
Assessment and Plan Cultures: 11/26/2020 blood culture: Klebsiella pneumonia, unusual resistance profile, ceftriaxone resistant with an AURELIA of 8, cefazolin susceptible with an AURELIA of 8, cefepime susceptible with AURELIA of less than 2 11/25/2020 urine culture: Usual skin ayla 11/28/2020 Blood culture: no growth Assessment: 59-year-old male with history of stomach cancer, on TPN, PORT in place, recent C. difficile colitis admitted on 11/25/2020 secondary to few days history of fever, chills, diarrhea: #Severe sepsis: Present on admission with tachycardia, leukocytosis, hypotension, hypoxia, elevated lactate; likely due to bacteremia. #Klebsiella bacteremia: Source could be intra-abdominal/gut translocation v/s PORT infection. UA not suggestive of infection. CT abdomen and pelvis revealed findings of large pleural effusion, multiple ill-defined lesions within the liver suspicious for metastatic disease, also there was distention of the gallbladder with gallstones with concern for possible acute cholecystitis, large amount of perihepatic and abdominopelvic ascites. #Suspected C. difficile: based on history, but no diarrhea here, sample not collected. CT does not show any colitis. #Acute hypoxemic respiratory failure: worsening. #Sacral decubitus: Stage II-III not infected #Encephalopathy #SERGIO: renally dose abx. Creatinine worse, up to 3.6 today. Recommendations: -creatinine worse, continue IV cefepime renally adjusted with Flagyl -Prognosis is extremely poor, if patient is going to remain full code, would need additional work-up for the intra-abdominal pathology and question of cholecystitis. RUQ ultrasound ordered. Nilsa Marie MD, FACP [facility] ([facility] O: [phone] F: [phone] Subjective Date of service: 12/01/20 Principal diagnosis: Colitis Interval history: Patient with worsening respiratory status. Fever of 101.4 F yesterday evening. Patient's family members refused hospice/palliative care. Plan is to move to [facility]. Creatinine worse, up to 3.6 today. Objective - Exam Narrative Exam: Physical Exam: Constitutional: awake, alert, respiratory distress Head, Ears, Nose: Normocephalic, atraumatic. External ears, nose normal Eyes: Conjunctivae/corneas clear. No icterus. No ptosis. Neck: Supple, no meningeal signs Cardiovascular: S1, S2 + Respiratory: b/l rhonchi GI: Soft, non-tender; bowel sounds normal. No peritoneal signs Musculoskeletal: No pedal edema, no cyanosis. PORT + Skin: No rash or abscess Hem/Lymphatic: No palpable cervical or supraclavicular nodes. No lymphangitis Psych: restless Neurological: awake, alert - Constitutional Vitals: Vital Signs Temp Pulse Resp BP Pulse Ox 98 F 108 H 20 85/48 93 12/01/20 10:02 12/01/20 10:02 12/01/20 10:02 12/01/20 10:02 12/01/20 10:02 Temperature -Last 24 Hours Temperature 98 F Temperature 97.3 F Temperature 98.4 F Temperature 101.4 F - Labs CBC & Chem 7: 11/27/20 08:41 12/01/20 05:47 Labs: Abnormal lab results 12/01/20 12/01/20 12/01/20 Range/Units 05:19 05:47 11:05 Chloride 108.1 H (98-107) mmol/L Carbon Dioxide 12 L (22-30) mmol/L BUN 89 H (9-20) mg/dL Creatinine 3.6 H (0.8-1.3) mg/dL Glucose 181 H (75-100) mg/dL POC Glucose 175 H 191 H (70-105) mg/dL Calcium 8.1 L (8.4-10.2) mg/dL
[2020-12-01] MEDS ORDERED: HALOPERIDOL LACTATE 5 MG/1 ML INJ IM ONE ×2 (13:40→14:00)
[2020-12-01] MEDS ORDERED: LORazepam 2 MG/ML VIAL IV ONE ×2 (14:48→14:50)
--- NOTE | 2020-12-01 15:28 | Ultrasound Report ---
LIMITED RUQ ABDOMINAL ULTRASOUND INDICATION: cholecystitis. COMPARISON: CT abdomen pelvis 11/29/2020. FINDINGS: Pancreas: Visualized portions show no significant abnormality. Abdominal Aorta: Obscured. IVC: No significant abnormality. Liver: The liver measures 18.5 cm in length. Images of the liver are limited but there appear to be multiple complex cysts or necrotic masses near the liver hilum. One of the largest lesions measure up to 4.4 cm in the right hepatic lobe.. Normal hepatopedal blood flow in the main portal vein. Gallbladder: There appears to be sludge and a few small stones in the gallbladder. The gallbladder wa ll is markedly thickened up to 7.6 mm.. Bile ducts: No significant abnormality. Common bile duct measures 2.4 mm. Right kidney: The right kidney is mildly atrophic and echogenic consistent with chronic renal parench ymal disease. No hydronephrosis.. Free fluid: There is moderate ascites in the anterior abdomen. Right pleural effusion is partially im aged. Additional Findings: None. IMPRESSION: Cholelithiasis. Thickened gallbladder wall. Correlate for acute cholecystitis. Resolution of the images are limited but there appear to be complex cysts or possibly necrotic masses in the liver. Further evaluation with CT or MRI with contrast is recommended. Ascites. Right pleural effusion. Mildly atrophic right kidney.. Signer Name: Hunter Hernandez Jr, MD Signed: 12/01/2020 3:23 PM Workstation Name: [id number]
--- NOTE | 2020-12-01 16:15 | Discharge Summary ---
Providers - Providers Date of Admission: 11/26/20 02:28 Date of discharge: 12/01/20 Attending physician: RYAN SAMPSON 11/26/20 02:31 Consult to Physician [CONS] Urgent Comment: Consulting Provider: JAYLEN WHITAKER Physician Instructions: Reason For Exam: c-diff 11/26/20 10:49 Consult to Wound/ET Nurse [CONS] Routine Reason For Exam: Sacral decubitus wound 11/26/20 14:43 Consult to Dietitian/Nutrition [CONS] Stat Physician Instructions: dr castellanos Reason For Exam: tpn protocol Reason for Consult: Write/Manage TPN/PPN [facility] Reason for admission: Acute hypoxic respiratory failure nausea vomiting and diarrhea/ Condition: Poor Pertinent studies: Chest x-ray CT abdomen and pelvis abdominal ultrasound Echocardiogram Hospital course: Patient is a 65-year-old male patient with significant past medical history of stomach cancer on TPN history of C. difficile colitis on treatment sacral decubiti stage II-III, severely malnourished was admitted through emergency room with fever chills and diarrhea, in ED patient was noted to be hypoxemic requiring supplemental oxygen Admitted to the hospital evaluated by ID, medications optimized, patient initially received empiric antibiotics, Work-up is consistent with severe sepsis due to C. difficile colitis stage II- III sacral decubitus, antibiotics adjusted per ID. Patient is in acute hypoxic respiratory failure requiring BiPAP and high flow oxygen, titrated to high flow nasal cannula oxygen 15 L today. Patient is on TPN, Patient is critically ill hospice evaluated the patient and recommended discharge home with home hospice, Patient has multiple medical problems with poor prognosis Discharge diagnosis: --Severe sepsis Current Visit: Yes Status: Acute Due to Klebsiella bacteremia, sacral decubitus ulcers IV hydration and abx therapy Follow blood culture and sensitivities ID evaluation recommendations noted and appreciated --Klebsiella bacteremia; Continue cefepime --Sacral decubitus ulcers/stage II-III Current Visit: Yes Status: Acute Wound care frequent turning the patient Wound care to evaluate for the need for surgical debridement --Acute hypoxic respiratory failure Today on nonrebreather 15 L Wean as tolerated, nebulizers Supportive care -- C. difficile colitis/possible Current Visit: Yes Status: Acute . Patient unable to tolerate oral vancomycin Continue IV Flagyl, ID following Contact isolation --Severe diarrhea Current Visit: Yes Status: Acute Probably secondary to c-diff infection IV hydration antibiotic . Contact isolation Symptoms gradually improving --History of metastatic stomach cancer; On TPN supportive care -- Acute kidney injury Current Visit: Yes Status: Acute Vasomotor nephropathy, avoid nephrotoxins Monitor renal function, continue gentle hydration IV fluids --Hypernatremia. Significantly improved Current Visit: Yes Status: Acute Today sodium normal levels at 144 DC IV fluids due to fluid overload --Hypophosphatemia; Current Visit: Yes Status: Acute IV K-Phos, closely monitor electrolytes Supportive care --Hypomagnesemia --Sinus tachycardia; Current Visit: Yes Status: Acute Probably secondary dehydration, IV fluids. Requiring supplemental oxygen Supportive care Discharge home with home hospice today Disposition: DC-50 TO HOSPICE (HOME) Final Discharge Diagnosis (Prints w/discharge instructions): Acute hypoxic respiratory failure. Severe sepsis. Klebsiella bacteremia. Stage II-III sacral decubitus ulcer. Acute kidney injury. Hyponatremia. Hypomagnesemia. Hypophosphatemia. C. difficile colitis. History of metastatic stomach cancer. DNR status Time spent for discharge: 35 min Core Measure Documentation - Palliative Care Palliative Care/ Comfort Measures: Hospice Care - Core Measures Any of the following diagnoses?: none Exam - Constitutional Vitals: Temp Pulse Resp BP Pulse Ox 98 F 92 H 40 H 98/67 96 12/01/20 12:55 12/01/20 12:55 12/01/20 12:55 12/01/20 12:55 12/01/20 12:55 General appearance: Present: severe distress, cachectic, disheveled - EENT Eyes: Present: PERRL, EOM intact - Neck Neck: Present: supple, normal ROM - Respiratory Respiratory effort: normal Respiratory: bilateral: diminished, rhonchi, negative: rales, wheezing - Cardiovascular Rhythm: regular Heart Sounds: Present: S1 & S2 - Extremities Extremities: no ischemia, No edema - Abdominal General gastrointestinal: Present: soft, non-tender, non-distended, normal bowel sounds - Integumentary Integumentary: Present: clear, warm - Musculoskeletal Musculoskeletal: generalized weakness - Psychiatric Psychiatric: other ( minimally communicative) - Neurologic Neurologic: other (Minimally communicative) Plan Activity: advance as tolerated, fall precautions Diet: other (TPN per protocol) Additional Instructions: TPN per protocol. Pain and agitation management [morphine /Ativan /Haldol] per hospice medical esthetician. IV antibiotics cefepime/Flagyl[rec by ID per hospice medical esthetician]. Patient is being discharged home with hospice Follow up with: CARLOS FUENTES MD [Primary Care Provider] - 7 Days Prescriptions: Acetaminophen [Acetaminophen SUPPOS] 650 mg MS Q4H PRN #30 supp.rect PRN Reason: Pain, Mild (1-3) HYDROcodone/APAP 5-325 [[place] 5-325 mg TAB] 1 each PO Q6H PRN #20 tablet PRN Reason: Pain, Moderate (4-6)
[2020-12-01] MEDS ORDERED: MORPHINE 2 MG/1 ML INJ IV PRN (16:20)
[2020-12-01] MEDS ORDERED: LORazepam 2 MG/ML VIAL IV PRN (16:21)
[2020-12-01] MEDS ORDERED: MORPHINE 2 MG/1 ML INJ IV ONE (17:00)
[2020-12-01] MEDS: CEFEPIME/NS 1 GM/100 ML 1 GM/100 ML BAG IV SCH (17:04)
[2020-12-01] MEDS: KETOROLAC 30 MG/1 ML INJ IV PRN (18:15)
[2020-12-01 19:31] VITALS: BP 83/52
[2020-12-01] MEDS ORDERED: TOTAL PARENTERAL NUTRITION 2,400 ML IV SCH (20:00)
== END 2020-12-01 18:30 | disposition hospice, home (50) | DRG 871 ==
LOC: ED 22:58 → OBSVTOIN 11-26 02:28 → 3A 11-26 02:28
PROVIDERS: ADMIT Internal Medicine Geriatric Medicine; ATTEND Internal Medicine
DX: A41.59 Other Gram-negative sepsis (principal); L89.153 Pressure ulcer of sacral region, stage 3; J96.01 Acute respiratory failure with hypoxia; N17.0 Acute kidney failure with tubular necrosis; A09 Infectious gastroenteritis and colitis, unspecified; G93.40 Encephalopathy, unspecified; E87.0 Hyperosmolality and hypernatremia; R65.20 Severe sepsis without septic shock; Z66 Do not resuscitate; Z51.5 Encounter for palliative care; E87.5 Hyperkalemia; Z88.6 Allergy status to analgesic agent; Z91.041 Radiographic dye allergy status; Z91.048 Other nonmedicinal substance allergy status; I95.9 Hypotension, unspecified; E83.39 Other disorders of phosphorus metabolism; E83.42 Hypomagnesemia; E86.0 Dehydration; Z85.028 Personal history of other malignant neoplasm of stomach
CPT/HCPCS: 36415; 71045; 74176; 76705; 80048; 80053; 81001; 82140; 82805; 82962; 83036; 83735; 84100; 84478; 85025; 86850; 86900; 86901; 87040; 87076; 87086; 87186; 93005; 93306; 94640; 96365; 96375; G0378; J0692; J1630; J1644; J1815; J1885; J1940; J2060; J2185; J2270; J2405; J2765; J3370; J3475; J7030; J7040; J7042; J7050